=== PATIENT | female | born 1990 | race African-American/Black ===

== ENCOUNTER 2021-01-29 08:55 | Emergency (ER) | payer OTHER ==
--- OUTSIDE RECORDS SUMMARY | 2021-01-29 08:58 | XMS REPORT | Continuity of Care Document ---
:1990 Author Organization [facility] t Address [address] [place] [address] [address]. [address] [place] [address] Care Team Providers Name Role Phone BUZZ Attending Clinician Unavailable CROSS Attending Clinician Unavailable WOMENS Attending Clinician Unavailable WOMENS Attending Clinician Unavailable Payers Payer Name Policy Type Policy Number Effective Date Expiration Date S ource Problems Condition Condition Condition Status Onset Resolution Last Treating Co mments Source Name Details Category Date Date Treatment Clinician Date History of History of Problem Resolve Univers abnormal abnormal d ity of cervical cervical [place] Papanicola Papanicola Ph ysici ou smear ou smear ans History of History of Problem Resolve Univers Nausea and Nausea and d it y of vomiting vomiting [place] in in Physici ans Visit for Visit for Problem Active Uni vers confirmati confirmati it y of on of on of [place] Phys ici test test ans result result with with physical physical exam exam Screen for Screen for Problem Active U nivers STD STD ity of (sexually (sexually [place] transmitte transmitte Ph ysici d disease) d disease) an s Vaginitis Vaginitis Problem Active Uni vers ity of [place] Physici ans Encounter Encounter Problem Active Uni vers for for [place] of supervis[place]vis[place] of [place] of Physici normal normal ans first first in second in second trimester trimester Constipati Constipati Problem Active U nivers [place] Anemia Anemia Problem Active Univers [facility]y of [place] [facility]ici ans Problem Active U nivers exam exam ity of [place] Physici ans UTI in UTI in Problem Active Univers ity of [place] [facility]ici ans Oral Oral Problem Active Univers contracept contracept it y of preethi preethi [place] prescribed prescribed Ph ysici ans Allergies, Adverse Reactions, Alerts Allergy Allergy Status Severity Reaction(s) Onset Inactive Treating Comm ents Source Name Type Date Date Clinician No Known DA Active [facility] Family History Family Member Diagnosis Comments Start Date Stop Date Source Unknown Family Family history of Family History [facility] of Member hypertension [place] Physic ians Unknown Family Family history of Family History University of Member diabetes mellitus [place] P hysicians Unknown Family Family history of Family History University of Member thyroid disease [place] Phy s[facility] Social History Smoking Status Start Date Stop Date Source Never smoked tobacco (finding) [facility] Medications Ordered Filled Start Stop Current Ordering Indication Dosage Frequency Signature Comments Components Source Medication Medication Date Date Medication? Clinician (SIG) Name Name Norgestim-E Norgestim-E Yes ROXY 1 QD TAKE 1 Univers Estrad th Estrad 1-28 CROSS M.D. TABLET ity of Triphasic Triphasic 00:00: DAILY. [place] 0.18/0.215/ 0.18/0.215/ 00 P hysici 0.25 MG-25 0.25 MG-25 ans MCG Oral MCG Oral Tablet Tablet Vital Signs Vital Name Observation Time Observation Value Comments Source Systolic blood 2019-03-17 120 mm[Hg] Location: [facility] 16:42:00 Position: [place] Physician s Sitting Diastolic blood 2019-03-17 74 mm[Hg] Location: [facility] 16:42:00 Position: [place] Physician s Sitting Body height 2019-03-17 66 [in_us] [facility] 16:42:00 [place] Physician s Weight 2019-03-17 195 [lb_av] [facility] 16:42:00 [place] [facility] s Body mass index 2019-03-17 31.47 kg/m2 [place] o f (BMI) [Ratio] 16:42:00 [place] [facility]icia ns Heart Rate 2019-03-17 83 /min [facility] 16:42:00 [place] Phys[place] s BP Systolic 2019-02-24 126 mm[Hg] [facility] 08[facility] Position: [place] Physician s Sitting BP Diastolic 2019-02-24 80 mm[Hg] [facility] 08:36:[facility] Position: [place] Physician s Sitting Height 2019-02-24 66 [in_us] University 08:36:00 [place] Physician s Weight 2019-02-24 191 [lb_av] University of 08:36:00 [place] Physician s Body Mass Index 2019-02-24 30.83 kg/m2 University o f Calculated 08:36:00 [place] Phys[facility] s Heart Rate 2019-02-24 98 /min University 08:36:00 [place] Phys[place] s BP Systolic 2018-12-04 118 mm[Hg] [place] [facility] [facility] 11:31:00 Position: [place] Physician s Sitting BP Diastolic 2018-12-04 74 mm[Hg] [place] [facility] [facility] 11:31:00 Position: [place] Physician s Sitting Height 2018-12-04 66 [in_us] University 11:31:00 [place] [facility] s Weight 2018-12-04 189 [lb_av] [facility] 11:31:00 [place] Physician s Body Mass Index 2018-12-04 30.51 kg/m2 University o f Calculated 11:31:00 [place] [facility] s Heart Rate 2018-12-04 85 /min [facility] 11:31:00 [place] Physician s BP Systolic 2018-07-24 124 mm[Hg] Location: [facility]; [facility] 10:21:00 Position: [place] Physician s Sitting BP Diastolic 2018-07-24 78 mm[Hg] Location: [facility] 10:21:00 Position: [place] Physician s Sitting Height 2018-07-24 66 [in_us] University 10:21:00 [place] [facility] s Weight 2018-07-24 200 [lb_av] University 10:21:00 [place] [facility] s Body Mass Index 2018-07-24 32.28 kg/m2 University o f Calculated 10:21:00 [place] Physician s Temperature 2018-07-24 98.2 [degF] Method: Oral University 10:21:00 [place] [facility] s Heart Rate 2018-07-24 82 /min University 10:21:00 [place] [facility] s BP Systolic 2018-05-22 124 mm[Hg] Location: [facility] 14:48:00 Position: [place] Physician s Sitting BP Diastolic 2018-05-22 72 mm[Hg] Location: [facility] 14:48:00 Position: [place] Physician s Sitting Height 2018-05-22 66 [in_us] University 14:48:00 [place] [facility] s Weight 2018-05-22 207 [lb_av] University 14:48:00 [place] [facility] s Body Mass Index 2018-05-22 33.41 kg/m2 University o f Calculated 14:48:00 [place] [facility] s BP Systolic 2018-04-17 128 mm[Hg] [place] [facility] [facility] 11:43:00 Position: [place] Physician s Sitting BP Diastolic 2018-04-17 78 mm[Hg] Location: [place]; [facility] 11:43:00 Position: [place] Physician s Sitting Height 2018-04-17 66 [in_us] University of 11:43:00 [place] [facility] s Weight 2018-04-17 243 [lb_av] University 11:43:00 [place] [facility] s Body Mass Index 2018-04-17 39.22 kg/m2 University o f Calculated 11:43:00 [place] [facility] s Heart Rate 2018-04-17 108 /min University 11:43:00 [place] [facility] s BP Systolic 2018-04-03 120 mm[Hg] Location: [facility] 14:46:00 Position: [place] Physician s Sitting BP Diastolic 2018-04-03 70 mm[Hg] [facility] 14:46:00 Position: [place] Physician s Sitting Height 2018-04-03 66 [in_us] University 14:46:00 [place] [facility] s Weight 2018-04-03 240 [lb_av] University 14:46:00 [place] [facility] s Body Mass Index 2018-04-03 38.74 kg/m2 University o f Calculated 14:46:00 [place] [facility] s Heart Rate 2018-04-03 96 /min [facility] 14:46:00 [place] [facility] s BP Systolic 2018-03-20 120 mm[Hg] Location: [place]; [facility] 13:49:00 Position: [place] Physician s Sitting BP Diastolic 2018-03-20 66 mm[Hg] Location: [place]; [facility] 13:49:00 Position: [place] Physician s Sitting Height 2018-03-20 66 [in_us] University of 13:49:00 [place] [facility] s Weight 2018-03-20 242 [lb_av] University of 13:49:00 [place] [facility] s Body Mass Index 2018-03-20 39.06 kg/m2 University o f Calculated 13:49:00 [place] [facility] s Temperature 2018-03-20 98.4 [degF] Method: Oral [facility] of 13:49:00 [place] [facility] s Heart Rate 2018-03-20 116 /min University of 13:49:00 [place] [facility] s O2 SAT 2018-03-20 98 % University of 13:49:00 [place] Phys[facility] s BP Systolic 2018-03-06 128 mm[Hg] Location: [place]; [place] [facility] 11:13:00 Position: [place] Physician s Sitting BP Diastolic 2018-03-06 80 mm[Hg] Location: [place]; [facility] 11:13:00 Position: [place] Physician s Sitting Height 2018-03-06 66 [in_us] University of 11:13:00 [place] [facility] s Weight 2018-03-06 241 [lb_av] University of 11:13:00 [place] [facility] s Body Mass Index 2018-03-06 38.9 kg/m2 University o f Calculated 11:13:00 [place] [facility] s Temperature 2018-03-06 98.1 [degF] Method: Oral [facility] of 11:13:00 [place] [facility] s Heart Rate 2018-03-06 99 /min [place] [facility] 11:13:00 [place] [facility]ician s BP Systolic 2018-02-20 118 mm[Hg] Location: [place]; [place] [facility] 13:54:00 Position: [place] Physician s Sitting BP Diastolic 2018-02-20 70 mm[Hg] Location: [place]; [facility] 13:54:00 Position: [place] Physician s Sitting Height 2018-02-20 66 [in_us] University of 13:54:00 [place] [facility] s Weight 2018-02-20 239 [lb_av] University of 13:54:00 [place] [facility]ician s Body Mass Index 2018-02-20 38.58 kg/m2 University o f Calculated 13:54:00 [place] Physician s BP Systolic 2018-01-28 120 mm[Hg] Location: [place]; [place] [facility] 11:29:00 Position: [place] Physician s Sitting BP Diastolic 2018-01-28 66 mm[Hg] Location: [place]; [place] [facility] 11:29:00 Position: [place] Physician s Sitting Height 2018-01-28 66 [in_us] University of 11:29:00 [place] Physician s Weight 2018-01-28 235.25 [lb_av] University of 11:29:00 [place] Physician s Body Mass Index 2018-01-28 37.97 kg/m2 University o f Calculated 11:29:00 [place] [facility] s Temperature 2018-01-28 98.4 [degF] Method: Oral [facility] of 11::00 [place] [facility] s Heart Rate 2018-01-28 77 /min University of ::00 [place] [facility] s O2 SAT 2018-01-28 97 % University of :: [place] Physician s BP Systolic 2018-01-14 120 mm[Hg] Location: [facility]; [place] [facility] :: Position: [place] Physician s Sitting BP Diastolic 2018-01-14 78 mm[Hg] Location: [place]; [facility] ::00 Position: [place] Physician s Sitting Height 2018-01-14 66 [in_us] University of ::00 [place] Physician s Weight 2018-01-14 233 [lb_av] University of :: [place] Physician s Body Mass Index 2018-01-14 37.61 kg/m2 University o f Calculated ::00 [place] Physician s BP Systolic 2017-12-19 108 mm[Hg] [facility] Position: [place] [facility]ician s Sitting BP Diastolic 2017-12-19 62 mm[Hg] [facility] Position: [place] [facility]ician s Sitting Height 2017-12-19 66 [in_us] University ::00 [place] Physician s Weight 2017-12-19 226 [lb_av] University of ::00 [place] Physician s Body Mass Index 2017-12-19 36.48 kg/m2 University o f Calculated ::00 [place] Physician s BP Systolic 2017-11-21 122 mm[Hg] [facility] :: Position: [place] Physician s Sitting BP Diastolic 2017-11-21 80 mm[Hg] [facility] :: Position: [place] Physician s Sitting Height 2017-11-21 66 [in_us] University of ::00 [place] Physician s Weight 2017-11-21 219 [lb_av] University of :: [place] Physician s Body Mass Index 2017-11-21 35.35 kg/m2 University o f Calculated ::00 [place] Physician s BP Systolic 2017-10-24 114 mm[Hg] [facility]: [facility] :25:00 Position: [place] Physician s Sitting BP Diastolic 2017-10-24 70 mm[Hg] [facility]25:00 Position: [place] Physician s Sitting Height 2017-10-24 66 [in_us] University of 15:25:00 [place] Physician s Weight 2017-10-24 214 [lb_av] [facility] 15:25:00 [place] Physician s Body Mass Index 2017-10-24 34.54 kg/m2 [place] [facility] Calculated 15:25:00 [place] [facility] s Temperature 2017-10-24 97.8 [degF] Method: Oral [facility] 15:25:00 [place] [facility] s Procedures Procedure Date / Time Performing Clinician Source Performed [LH] GC/CT by Amp Det 2019-03-18 00:00:00 [facility] ([facility]) Physicians . [facility] - GC/Chlamydia 2019-03-18 00:00:00 [facility] Physicians [QLH] CULTURE, URINE, 2018-12-04 00:00:00 [facility] ROUTINE Physicians . [facility] - PAP 2018-07-24 00:00:00 [facility] Physicians [QLH] RPR 2018-07-24 00:00:00 [facility] Physicians [QH] HIV AB, HIV 1/2, EIA, 2018-07-24 00:00:00 [facility] WITH REFLEXES Physicians [QH] HEPATITIS B SURFACE 2018-07-24 00:00:00 [facility] ANTIGEN W/REFL CONFIRM Physician s [QLH] HEPATITIS C ANTIBODY 2018-07-24 00:00:00 U [facility] Physicians [QH] STREPTOCOCCUS, GROUP 2018-04-03 00:00:00 [facility] B CULTURE (Genital Strep Physici ans Screen) [QLH] RPR 2018-04-03 00:00:00 [facility] Physicians [QLH] CBC (INCLUDES 2018-04-03 00:00[facility] [QH] HIV AB, HIV 1/2, EIA, 2018-04-03 00:00:00 U [facility] WITH REFLEXES Physicians [QH] GLUCOSE, GESTATIONAL 2018-01-14 00:00[facility]00 [id number]130 CUTOFF Physicia ns [QLH] CBC (INCLUDES 2018-01-14 00:00:00 Universi ty [facility] DIFF/PLT) Physicians [H] Alpha Fetoprotein 2017-11-21 00:00:00 [facility] (Only) Maternal Screen Physician s [H] Obstetrics Panel 2017-10-24 00:00:00 [facility] (includes CBCw/Diff,RPR, Physici ans HbsAg,RubIgG,Type and Screen) [QH] HIV AB, HIV 1/2, EIA, 2017-10-24 00:00:00 U [facility] WITH REFLEXES Physicians [QLH] CULTURE, URINE, 2017-10-24 00:00:00 [facility] ROUTINE Physicians [QLH] URINALYSIS, COMPLETE 2017-10-24 00:00:00 U [facility] Physicians [H] Hemoglobin 2017-10-24 00:00:00 [facility] Electrophoresis and Physicians Interpretation [QH] [id number] 2017-10-24 00:00:00 [facility] DEHYDROGENASE, QUANT. Physicians [QLH] BV/ VAGINITIS PANEL 2017-10-24 00:00:00 [facility] DNA PROBE AFFIRM Physicians [LH] GC/CT by Amp Det 2017-10-24 00:00:00 [facility] ([facility]) Physicians History Of Prior Surgery [facility] Physicians Encounters Start End Encounter Admission Attending Care Care Encounter Source Date/Time Date/Time Type Type Clinicians Facility Department ID 2019 2019 Emergency E BUZZ, MHBL MHBL [id number] MHBL 05:31:00 06:13:00 SABHA 2019-03-17 2019-03-17 AppointJODIE Hand[facility] [id number] Univers 16:00:00 16:00:00 t; ROXY LOWE Center Elke M.D. [facility] Yissel Physici ans 2019-02-24 2019-02-24 AppointJODIE Handy [facility] [id number] Univers 08:30:00 08:30:00 t; [facility] Yissel Physici ans 2018-12-04 2018-12-04 JODIE Shaffer [facility] [id number] Univers 11:30:00 11:30:00 t; [facility] Yissel Physici ans 2018-07-24 2018-07-24 Appointmen [facility] [id number] Univers 10:15:00 10:15:00 t; R[place]Y LOWE Center Elke M.D. [facility] Yissel Physici ans 2018-05-22 2018-05-22 Appointmen [facility] [id number] Univers 14:15:00 14:15:00 t; [facility]Y LOWE Center ity of TAMIKA, M.D. [facility] Yissel Physici ans 2018-04-17 2018-04-17 Appointmen [facility] [id number] Univers 11:30:00 11:30:00 t; ROXY LOWE Center ity of TAMIKA, M.D. [facility] Yissel Physici ans 2018-04-03 2018-04-03 Appointmen [facility] [id number] Univers 14:00:00 14:00:00 t; ROXY LOWE Wilmer Elke M.D. [facility] Yissel Physici ans 2018-03-20 2018-03-20 Appointmen [facility] [id number] Univers 13:30:00 13:30:00 t; ROXY LOWE Center ity of TAMIKA, M.D. [facility] Yissel Physici ans 2018-03-06 2018-03-06 Appointmen [facility] [id number] Univers 10:45:00 10:45:00 t; ROXY LOWE Center ity of TAMIKA, M.D. [facility] Yissel Physici ans 2018-02-20 2018-02-20 Appointmen [facility] Women[facility] [id number] Univers 13:45:00 13:45:00 t; ROXY LOWE Center ity of TAMIKA, M.D. [facility] Yissel Physici ans 2018-01-28 2018-01-28 Appointmen [facility] [id number] Univers 10:45:00 10:45:00 t; ROXY LOWE Center ity of TAMIKA, M.D. [facility] Yissel Physici ans 2018-01-14 2018-01-14 AppointJODIE Handy [facility] [id number] Univers 10:45:00 10:45:00 t; ROXY LOWE [facility]mer [facility] 2017-12-20 2017-12-20 Appointgiovanna [facility] [id number] Univers 10:45:00 10:45:00 t; WOMENS, ROOM-1 ity of ROOM-1 [place] Physici ans 2017-12-19 2017-12-19 Appointgiovanna [facility] [id number] Univers 15:15:00 15:15:00 t; [facility]E [facility]ici ans 2017-11-21 2017-11-21 JODIE Shaffer [facility] [id number] Univers 10:45:00 10:45:00 t; ROXY LOWE Wilmer Elke [facility]. [facility] 2017-11-01 2017-11-01 Appointgiovanna [facility] [id number] Univers 14:00:00 14:00:00 t; WOMENNaa, ROOM-1 ity of ROOM-1 [place] Physici ans 2017-11-01 2017-11-01 Appointgiovanna [facility] [id number] Univers 13:00:00 13:00:00 t; WOMENNaa, COUNSELING ity of COUNSELING [place] Physici ans 2017-10-24 2017-10-24 Tony [facility] [id number] Univers 15:00:00 15:00:00 t; ROXY LOWE [facility] Physici ans Results Test Description Test Time Test Comments Results Result Comments Source . [facility] - GC/Chlamydia 2019-03-18 00:00:00 Test Item Value Reference Range Interpretation Comme nts Case (test code = Case) Click ImageLink button for report. N Specimen 1 (test code = Specimen 1) Click ImageLink button for repo rt. N [facility] Physicians[O] Urine Dipstick (In Office)2018-12-04 13:38:00 Test Item Value Reference Range Interpretation Comments Glucose (test code = Glucose) negative N LEUKOCYTES (test code = LEUKOCYTES) small A NITRITE; Abnormal (test code = positive A 87522-2) UROBILINOGEN; Abnormal (test code = 1.0 A 46202-8) PROTEIN; Abnormal (test code = trace A 67690-4) pH (test code = pH) 6.0 A URINE BLOOD; Abnormal (test code = trace A 17274-1) SPECIFIC GRAVITY; Abnormal (test 1.025 A code = 2965-2) KETONES; Normal (test code = negative N 19580-7) BILIRUBIN; Normal (test code = negative N 50542-0) COLOR URINE; Normal (test code = yellow N 5778-6) [facility] Physicians[O] Urine Test (in office)2018-12-04 11:28:00 Test Item Value Reference Range Interpretation Comments Test, Urine; Abnormal positive A (test code = 2106-3) Control Line Present? (test code = Yes N Control Line Present?) Test Lot# (test code = Test Lot#) [id number] N [facility]] CULTURE, URINE, [id number] 00:00:01 Test Item Value Reference Range Interpretation Comments FINAL REPORT (test code <10,000 CFU/mL Skin = FINAL REPORT) Che [facility]] [id number] 11:14:01 Test Item Value Reference Range Interpretation Comments RPR (test code = 27450-1) Non-Reactive Non-Reactive [facility][] HEPATITIS B SURFACE ANTIGEN W/REFL CONFIRM 2018-07-24 11:14:01 Test Item Value Reference Range Interpretation Comments Hepatitis B Surface Antigen (test Negative Negative code = 5195-3) [facility]] HEPATITIS C [id number] 11:14:01 Test Item Value Reference Range Interpretation Comments Hepatitis C Antibody (test code = Negative 14841-3) [facility] Physicians[] HIV AB, HIV 1/2, EIA, WITH [id number] 11:14:01 Test Item Value Reference Range Interpretation Comments HIV Ag/Ab 4th Gen Negative Negative HIV test r esults should be (test code = considered posi tive only 40678-8) when both the s creening andthe confirma tory tests are positive. A negative confirmatory te st in patientswith a positive screening test does not exclude HIV inf ection. If clincallywarran dayan, an HIV RNA quantitativ e test should be order ed. [facility] Physicians. [facility] - [id number] 00:00:00 Test Item Value Reference Range Interpretation Comments PAP REPORT (test code = 88889-2) See Comment [facility] Physicians[] HIV AB, HIV 1/2, EIA, WITH [id number] 15:44:01 Test Item Value Reference Range Interpretation Comments HIV Ag/Ab 4th Gen Negative Negative HIV test r esults should be (test code = considered posi tive only 74531-8) when both the s creening andthe confirma tory tests are positive. A negative confirmatory te st in patientswith a positive screening test does not exclude HIV inf ection. If clincallywarran dayan, an HIV RNA quantitativ e test should be order ed. [facility] Physicians[] STREPTOCOCCUS, GROUP B CULTURE (Genital Strep Screen)2018-04-03 15:44:01 Test Item Value Reference Range Interpretation Comments FINAL REPORT (test No Beta-Hemolytic code = FINAL REPORT) Streptococci Isolated [facility] Physicians[[facility]] CBC (INCLUDES DIFF/PLT)2018-04-03 15:44:01 Test Item Value Reference Range Interpretation Comments WBC (test code = 6690-2) 9.4 {K/CMM} 3.7-10.4 RBC; Below Low Threshold (test 3.63 {M/CMM} 4.20-5.40 code = 789-8) Hgb; Below Low Threshold (test 10.2 g/dl 12.0-16.0 code = 718-7) Hct; Below Low Threshold (test 32.0 % 36.0-48.0 code = 75374-2) MCV (test code = 787-2) 88.3 fL 80.0-98.0 MCH (test code = 785-6) 28.1 pg 27.0-31.0 MCHC; Below Low Threshold (test 31.8 g/dl 32.0-36.0 code = 786-4) RDW; Above High Threshold (test 15.7 % 11.5-14.5 code = 788-0) Platelet (test code = 21940-3) 319 {K/CMM} 133-450 Mean Platelet Volume (test code 9.0 fL 7.4-10.4 = 57001-9) [facility]] [id number] 15:44:01 Test Item Value Reference Range Interpretation Comments Segmented Neutrophils (test code 72.6 % 45.0-75.0 = 38358-9) Monocytes (test code = 79487-6) 7.3 % 2.0-12.0 Lymphocytes; Below Low Threshold 18.6 % 20.0-40.0 (test code = 64256-3) Eosinophils (test code = 00052-3) 1.2 % 0.0-4.0 Basophils (test code = 706-2) 0.3 % 0.0-1.0 Segs-Bands # (test code = 6.8 {K/CMM} 1.5-8.1 34872-0) Lymphocytes # (test code = 1.7 {K/CMM} 1.0-5.5 95016-2) Monocytes # (test code = 09222-1) 0.7 {K/CMM} 0.0-0.8 Eosinophils # (test code = 0.1 {K/CMM} 0.0-0.5 36036-0) [facility]] [id number] 15:44:01 Test Item Value Reference Range Interpretation Comments RPR (test code = 29077-3) Non-Reactive Non-Reactive [facility]] CBC (INCLUDES DIFF/PLT)2018-01-16 14:52:01 Test Item Value Reference Range Interpretation Comments WBC; Above High Threshold (test 12.1 {K/CMM} 3.7-10.4 code = 6690-2) RBC; Below Low Threshold (test 3.34 {M/CMM} 4.20-5.40 code = 789-8) Hgb; Below Low Threshold (test 9.5 g/dl 12.0-16.0 code = 718-7) Hct; Below Low Threshold (test 29.7 % 36.0-48.0 code = 99023-2) MCV (test code = 787-2) 89.1 fL 80.0-98.0 MCH (test code = 785-6) 28.5 pg 27.0-31.0 MCHC (test code = 786-4) 32.0 g/dl 32.0-36.0 RDW (test code = 788-0) 13.8 % 11.5-14.5 Platelet (test code = 08467-5) 391 {K/CMM} 133-450 Mean Platelet Volume (test code 9.0 fL 7.4-10.4 = 72339-8) [facility] Physicians[[facility]] [id number] 14:52:01 Test Item Value Reference Range Interpretation Comments Segmented Neutrophils (test code 69.8 % 45.0-75.0 = 59275-5) Monocytes (test code = 20315-5) 6.7 % 2.0-12.0 Lymphocytes (test code = 32570-5) 21.5 % 20.0-40.0 Eosinophils (test code = 75389-8) 1.6 % 0.0-4.0 Basophils (test code = 706-2) 0.4 % 0.0-1.0 Segs-Bands #; Above High 8.4 {K/CMM} 1.5-8.1 Threshold (test code = 95923-9) Lymphocytes # (test code = 2.6 {K/CMM} 1.0-5.5 66480-8) Monocytes # (test code = 28688-0) 0.8 {K/CMM} 0.0-0.8 Eosinophils # (test code = 0.2 {K/CMM} 0.0-0.5 26451-4) Basophils # (test code = 21312-6) 0.1 {K/CMM} 0.0-0.2 [facility][] GLUCOSE, GESTATIONAL SCREEN (50G)-130 CUTOFF 2018-01-16 14:52:01 Test Item Value Reference Range Interpretation Comments Glucose Challenge (test code = 94.0 mg/dl <=140.0 1504-0) [facility][H] Alpha Fetoprotein (Only) Maternal Screen 2017-11-21 12:33:01 Test Item Value Reference Interpretation Comments Range Results Report (Maternal Screen) (test code = Results (Maternal Screen)) Test Results *Screen (Maternal Negative* Screen) (test code = Test Results (Maternal Screen)) Gest Age on 16.9 {WEEKS} Collection Date (test code = Gest Age on Collection Date) Gest Age Base On Ultrasound 16.9 on (test code = 11/21/2017Recal culations Gest Age Base are not recomm ended when On) gestational myron ingby LMP and ultrasound are within 10 days. Maternal Age at 25.3 ARIK (test code = Maternal Age at ARIK) Maternal Race Black (test code = Maternal Race) Maternal Weight 219 {lb} (test code = Maternal Weight) Insulin-Dependen No t Diabetic (test code = Insulin-Dependen t Diabetic) Multiple Gest No (test code = Multiple Gest) Alpha 24.6 ng/ml Fetoprotein Maternal (test code = Alpha Fetoprotein Maternal) Multiple of 0.76 Median AFP (test code = 43119-1) Risk for NTD 92920 (OBS) (test code = Risk for NTD (OBS)) Maternal Screen Comment Interpretati on: Screen Interp (test NegativeThis re sult is code = Maternal screen negat preethi for Screen Interp) OSB. The AFP MoMcalculated is based on the gestational age provided. M S-AFPcan identify up to 80% of open neural tu be defects.Closed neural tube defects and charity e open defects may not bedetected by this test. T his test does not screen for fetalDown Syndr ome or Trisomy 18. If screening for Down Syndro meor Trisomy 18 is desired, contact [facility] to discuss availab le options. The AmericanCol lege of Obstetricians a nd Gynecologists recommendsamnio centesis be offered to wome n age 35 and older. Comment Comment Joanie Garcia, (Maternal Scrn) Ph.D., [facility] Principal (test code = Genetics Techni eran Comment DirectorReferen harman: (Maternal Scrn)) Available U marbin Request.Multipl es Of Median Cutoffs For AFP ElevationsSingl eton 2.5 Black 2.8IDD 2.0 Twins 4.5 Abbr eviation DefinitionsIDD - Insulin Dep DiabetesOSB R - Open Spina Bifida Ri skFor further inquiri es contact [facility] at [phone]. Performed At: [facility] [id number] [place], [place] [id number] Hope MD Ph :[phone] Insulin N Dependent? (test code = Insulin Dependent?) Gest Ager Weeks? 16 (test code = Gest Ager Weeks?) Gest Age Days 6 (test code = Gest Age Days) Gest Age Date of Calculation (YYYYMMDD) (test code = Gest Age Date of Calculation (YYYYMMDD)) Gest Age Method Ultrasound of Calculation (test code = Gest Age Method of Calculation) Date of LMP (test code = Date of LMP) Est Due Date (test code = Est Due Date) Number of 1 Fetuses (test code = Number of Fetuses) Other N Indications? (test code = Other Indications?) Donor Egg (test N code = Donor Egg) Donor Age at Egg 0 Retrieval (test code = Donor Age at Egg Retrieval) [facility]] BV/ VAGINITIS PANEL DNA PROBE AFFIRM 2017-10-24 20:16:01 Test Item Value Reference Range Interpretation Comments Trichomonas vaginalis DNA (test code Negative Negative = 36117-3) Gardnerella vaginalis DNA; Abnormal Positive Negative A (test code = 6410-5) Hailey sp. DNA (test code = Negative Negative 36966-7) [facility][] GC/CT by Amp Det (APTIMA)2017-10-24 20:16:01 Test Item Value Reference Range Interpretation Comments Source APTIMA Vaginal (test code = Source APTIMA) N gonorrhea by Amp Negative Negative The APTIM A assay is a Det (APTIMA) (test target am plification code = 48076-5) nucleic acid probe test utilizingtarget capture for the qualitative detection and differentia tion of ribosomalRNA fr om Neisseria gonorrhoeae to aid in the diagnosis of di sease fromsymptomatic and asymptomatic in dividuals using the [facility] System.This ass ay utilizes FDA cleared IVD reagents. Performance pk racteristics havemichelleen verifi ed by the Molecular Diagn ostic Laboratory with in [facility].The [facility] johnsonrachana is authorized unde r the Clinical LaboratoryImpro vement Amendments of 1 988 (CLIA-88) to pe rform high complexity test ing. C trachomatis by Negative Negative The APTIMA assay is a Amp Det (APTIMA) target ampl ification (test code = nucleic acid pr obe test 18588-7) utilizingtarget capture for the qualitative detection and differentia tion of ribosomalRNA fr om Chlamydia trachomatis to aid in the diagnosis of di sease fromsymptomatic and asymptomatic in dividuals using the [facility] ER System.This ass ay utilizes FDA cleared IVD reagents. Performance pk racteristics havebeen verifi ed by the [facility] o[facility] Laboratory with in [facility].The [facility] ratory is authorized unde r the Clinical LaboratoryImpro vement Amendments of 1 988 (CLIA-88) to pe rform high complexity test ing. C trachomatis by Negative Negative The APTIMA assay is a Amp Det (APTIMA) target ampl ification (test code = nucleic acid pr obe test 45259-6) utilizingtarget capture for the qualitative detection and differentia tion of ribosomalRNA fr om Chlamydia trachomatis to aid in the diagnosis of di sease fromsymptomatic and asymptomatic in dividuals using the [facility] ER System.This ass ay utilizes FDA cleared IVD reagents. Performance pk racteristics havebeen verifi ed by the [facility] with in [facility].The [facility] r[facility] is authorized unde r the Clinical LaboratoryImpro vement Amendments of 1 988 (CLIA-88) to pe rform high complexity test ing. [facility][H] Obstetrics Panel (includes CBCw/Diff,RPR, HbsAg,RubIgG,Type and Screen)2017-10-24 16:30:01 Test Item Value Reference Range Interpretation Comments ABORH (test code = AB POS 882-1) AB Screen (test code = Negative 890-4) WBC; Above High 11.1 {K/CMM} 3.7-10.4 Threshold (test code = 6690-2) RBC; Below Low 3.90 {M/CMM} 4.20-5.40 Threshold (test code = 789-8) Hgb; Below Low 11.3 g/dl 12.0-16.0 Threshold (test code = 717-9) Hct; Below Low 34.4 % 36.0-48.0 Threshold (test code = 47878-7) MCV (test code = 88.1 fL 80.0-98.0 787-2) MCH (test code = 29.1 pg 27.0-31.0 41574-2) MCHC (test code = 33.0 g/dl 32.0-36.0 786-4) RDW (test code = 14.2 % 11.5-14.5 788-0) Platelet (test code = 427 {K/CMM} 133-450 777-3) MPV (test code = 9.2 fL 7.4-10.4 42966-1) Rubella IgG (test code 54.9 {IU/ml} >=10.0 Refer ence Range: = 81432-4) Immune >= 10 IU /mL Hep Bs Ag (test code = Negative Negative 5195-3) Segs (test code = 73.3 % 45.0-75.0 33293-5) Monocytes # (test code 0.7 {K/CMM} 0.0-0.8 = 50477-0) Lymphocytes (test code 18.5 % 20.0-40.0 = Lymphocytes) Eosinophils (test code 1.5 % 0.0-4.0 = Eosinophils) Basophils # (test code 0.0 {K/CMM} 0.0-0.2 = 60623-0) Segs-Bands #; Above 8.2 {K/CMM} 1.5-8.1 High Threshold (test code = 40121-1) Lymphocytes # (test 2.1 {K/CMM} 1.0-5.5 code = 99717-3) Eosinophils # (test 0.2 {K/CMM} 0.0-0.5 code = 58746-6) RPR (test code = Non-Reactive Non-Reactive 53333-0) [facility]] URINALYSIS, [id number] 16:30:01 Test Item Value Reference Range Interpretation Comments UA Turbidity; Abnormal (test code Marked Clear A = 03188-8) UA Spec Grav (test code = 5810-7) 1.024 <=1.030 UA pH (test code = 5803-2) 6.0 5.0-8.0 UA Protein; Abnormal (test code = 30 mg/dl Negative A 27126-4) UA Glucose (test code = 55916-3) Negative Negative UA Ketones; Abnormal (test code = Trace Negative A 01596-3) UA Bili (test code = 5770-3) Negative Negative UA Blood; Abnormal (test code = Moderate Negative A 5794-3) UROBILINOGEN; Above High Threshold 4.0 mg/dl 0.1-1.0 (test code = 77566-4) UA Nitrite (test code = 5802-4) Negative Negative UA Leuk Est; Abnormal (test code = Moderate Negative A 5799-2) UA RBC; Above High Threshold (test 37 {/HPF} 0-2 code = 85628-6) UA WBC; Above High Threshold (test 60 {/HPF} 0-5 code = 25673-0) UA Bacteria; Abnormal (test code = Moderate None Seen A 16157-6) UA Mucus; Abnormal (test code = Many None Seen A 8247-9) UA Sq Epi (test code = 35718-3) Occasional Few UA Color (test code = 5778-6) Mariela [facility][] HIV AB, HIV 1/2, EIA, WITH [id number] 16:30:01 Test Item Value Reference Range Interpretation Comments HIV Ag/Ab 4th Gen Negative Negative HIV test r esults should be (test code = considered posi tive only 98374-9) when both the s creening andthe confirma tory tests are positive. A negative confirmatory te st in patientswith a positive screening test does not exclude HIV inf ection. If clincallywarran dayan, an HIV RNA quantitativ e test should be order ed. [facility]] CULTURE, URINE, [id number] 16:30:01 Test Item Value Reference Range Interpretation Comments ORGANISM (test code = Citrobacter koseri 699-9) FINAL REPORT (test >100,000 CFU/mL code = FINAL REPORT) Citrobacter koseri 50,000 - 100,000 CFU/mL Skin Che [facility][H] [id number] 16:30:01 Test Item Value Reference Range Interpretation Comments ORGANISM (test code = Citrobacter koseri 699-9) Amikacin (test code = <=16 S Amikacin) Ampicillin (test code >16 R = Ampicillin) Ampicillin/Sulbactam <=8/4 S (test code = Ampicillin/Sulbactam) Cefazolin (test code <=8 S = Cefazolin) Cefepime (test code = <=4 S Cefepime) Ceftriaxone (test <=8 S code = Ceftriaxone) Ciprofloxacin (test <=1 S code = Ciprofloxacin) Gentamicin (test code <=4 S = Gentamicin) Levofloxacin (test <=2 S code = Levofloxacin) Meropenem (test code <=1 S = Meropenem) Nitrofurantoin (test <=32 S code = Nitrofurantoin) Piperacillin/Tazobact <=16 S am (test code = Piperacillin/Tazobact am) Tetracycline (test <=4 S code = Tetracycline) Tobramycin (test code <=4 S = Tobramycin) Trimethoprim/Sulfamet <=2/38 S S= Perla ceptible, hoxazole (test code = R= Res istant, I= Trimethoprim/Sulfamet Interm ediate, hoxazole) N/A= Not Applicable [facility][H] Hemoglobin Electrophoresis and Interpretation 2017-10-24 16:30:01 Test Item Value Reference Interpretation Comments Range Hgb A % (test code 97.3 % 95.8-97.8 = 4546-8) Hgb A2 % (test code 2.7 % 2.2-3.2 = 4552-6) Hgb F % (test code 0.0 % 0.0-1.0 = 52626-0) Hgb S % (test code 0.0 % 0.0-0.0 = 94456-4) Hgb C % (test code 0.0 % 0.0-0.0 = 81758-3) Hemoglobin SEE NOTES No abnormal hem oglobins are Electrophoresis detected. Th is is a normal Interpretation hemoglobinele ctrophoresis (test code = pattern.The romina ctronic 70385-6) medical record has been reviewed forrel evant medical information.Jorge estevez personally reviewed the te st results andconcur with the resident's interpretation. CPT 12085-WBYqofrtv glenroy Signature Edita Villarreal MD 10/28/17 10:54 AM [facility][O] Urine Test (in office)2017-10-24 15:41:00 Test Item Value Reference Range Interpretation Comments Test, Urine; Abnormal positive A (test code = 2106-3) [facility]
--- NOTE | 2021-01-29 09:57 | EDPHYS ---
Physician Documentation [facility] Name: Ngoc Thomson Age: 30 yrs Sex: Female : 1990 Arrival Date: 01/29/2021 Time: 08:56 Bed 8 Private MD: ED Physician Regla Ruiz HPI: 01/29 09:55 This 30 yrs old Black Female presents to ER via Ambulatory with complaints of Shortness ma2 Of Breath - covid+, Back Pain. 09:55 The patient has shortness of breath during heavy activity. Onset: The symptoms/episode ma2 began/occurred gradually, 1 day(s) ago. Associated signs and symptoms: Pertinent negatives: dizziness, loss of consciousness, numbness in extremities, vomiting. Severity of symptoms: At their worst the symptoms were very mild in the emergency department the symptoms are unchanged. The patient has not experienced similar symptoms in the past. She requests empiric treatment for STDs. Sexually active with vaginal discharge. Historical: - Allergies: 09:10 No Known Allergies; bp - Home Meds: 09:10 CONTROL [Active]; bp - PMHx: 09:10 None; bp - PSHx: 09:10 None; bp - Immunization history:: Adult Immunizations up to date, Client reports receiving the 2nd dose of the Covid vaccine, Date received: November 2020. - Social history:: Smoking status: Patient denies any tobacco usage or history of. Patient/guardian denies using alcohol, street drugs, The patient lives with family. - Family history:: not pertinent. ROS: 09:55 Constitutional: Negative for fever, chills, and weight loss. ma2 09:55 All other systems are negative. Exam: 09:55 Constitutional: This is a well developed, well nourished patient who is awake, alert, ma2 and in no acute distress. Head/Face: Normocephalic, atraumatic. Eyes: Pupils equal round and reactive to light, extra-ocular motions intact. Lids and lashes normal. Conjunctiva and sclera are non-icteric and not injected. Cornea within normal limits. Periorbital areas with no swelling, redness, or edema. ENT: Nares patent. No nasal discharge, no septal abnormalities noted. Tympanic membranes are normal and external auditory canals are clear. Oropharynx with no redness, swelling, or masses, exudates, or evidence of obstruction, uvula midline. Mucous membranes moist. Neck: Trachea midline, no thyromegaly or masses palpated, and no cervical lymphadenopathy. Supple, full range of motion without nuchal rigidity, or vertebral point tenderness. No Meningismus. Chest/axilla: Normal chest wall appearance and motion. Nontender with no deformity. No lesions are appreciated. Cardiovascular: Regular rate and rhythm with a normal S1 and S2. No gallops, murmurs, or rubs. Normal PMI, no JVD. No pulse deficits. Respiratory: Lungs have equal breath sounds bilaterally, clear to auscultation and percussion. No rales, rhonchi or wheezes noted. No increased work of breathing, no retractions or nasal flaring. Abdomen/GI: Soft, non-tender, with normal bowel sounds. No distension or tympany. No guarding or rebound. No evidence of tenderness throughout. Skin: Warm, dry with normal turgor. Normal color with no rashes, no lesions, and no evidence of cellulitis. MS/ Extremity: Pulses equal, no cyanosis. Neurovascular intact. Full, normal range of motion. Neuro: Awake and alert, GCS 15, oriented to person, place, time, and situation. Cranial nerves II-XII grossly intact. Motor strength 5/5 in all extremities. Sensory grossly intact. Cerebellar exam normal. Normal gait. Vital Signs: 09:08 BP 125 / 94; Pulse 76; Resp 17; Temp 99; Pulse Ox 100% ; Weight 96.62 kg; Height 5 ft. bp 7 in. (170.18 cm); 10:15 BP 109 / 83; Pulse 80; Resp 16; Pulse Ox 100% ; bp 09:08 Body Mass Index 33.36 (96.62 kg, 170.18 cm) bp MDM: 09:00 Patient medically screened. ma2 09:55 Differential diagnosis: Anxiety Reaction Psychogenic reactive airway disease. Data ma2 reviewed: vital signs, nurses notes, EMS record. Counseling: I had a detailed discussion with the patient and/or guardian regarding: the historical points, exam findings, and any diagnostic results supporting the discharge/admit diagnosis, the presence of at least one elevated blood pressure reading (>120/80) during this emergency department visit, the need for outpatient follow up, Tested positive for Covid.. 01/29 10:04 Order name: Urine Dipstick-Ancillary EDMS 01/29 10:05 Order name: Urine --Ancillary (enter results) eb 01/29 09:21 Order name: Urine Dipstick-Ancillary (obtain specimen); Complete Time: 10:14 ma2 01/29 10:05 Order name: Urine --Ancillary EDMS Administered Medications: 09:45 Drug: Zithromax (azithromycin) 1000 mg Route: PO; bp 10:14 Follow up: Response: No adverse reaction bp 09:45 Drug: Rocephin (cefTRIAXone) 250 mg Route: IM; Site: left gluteus; bp 10:14 Follow up: Response: No adverse reaction bp Disposition Summary: 01/29/21 09:57 Discharge Ordered Location: Home ma2 Condition: Stable ma2 Diagnosis - Other viral infections of unspecified site - covid - 19 ma2 Followup: ma2 - With: Private Physician - When: Tomorrow - Reason: If symptoms return, Continuance of care Discharge Instructions: - Discharge Summary Sheet ma2 - 10 Things You Can Do to Manage Your COVID-19 Symptoms at Home - [facility] ma2 Forms: - Medication Reconciliation Form ma2 - Thank You Letter ma2 - Antibiotic Education ma2 - Prescription Opioid Use ma2 - Work release form eb Prescriptions: - albuterol sulfate 90 mcg/actuation Inhalation aerosol powdr breath activated - inhale 2 puff by INHALATION route every 12 hours; 2 puff; Refills: 0, Product ma2 Selection Permitted - Reglan 10 mg Oral Tablet - take 1 tablet by ORAL route every 6 hours . take 30 minutes before meals and at ma2 bedtime; 100 tablet; Refills: 0, Product Selection Permitted - Diclofenac Sodium 75 mg Oral Tablet Sustained Release - take 1 tablet by ORAL route 2 times per day; 30 tablet; Refills: 0, Product ma2 Selection Permitted - Zithromax Z-Juventino 250 mg Oral Tablet - take 1 tablet by ORAL route as directed for 5 days Day 1 - take two (2) tablets ma2 one time. Day 2, 3, 4 , 5 take one (1) tablet once daily.; 6 tablet; Refills: 0, Product Selection Permitted - Medrol (Juventino) 4 mg Oral Tablets, Dose Pack - take 1 tablet by ORAL route as directed - follow package instructions; 1 ma2 packet; Refills: 0, Product Selection Permitted Signatures: Dispatcher [employer] Abel Veliz, LEO RN Regla Ramirez MD MD ma2
--- NOTE | 2021-01-29 09:57 | ER ---
Nurse's Notes [facility] Name: Ngoc Thomson Age: 30 yrs Sex: Female : 1990 Arrival Date: 01/29/2021 Time: 08:56 Bed 8 Private MD: Diagnosis: Other viral infections of unspecified site-covid - 19 Presentation: 01/29 09:08 Chief complaint: Patient states: NEW COVID PT, SOB, ANXIETY AND BACK PAIN. Coronavirus bp screen: cough unrelated to allergies, shortness of breath, Client presents with at least one sign or symptom that may indicate coronavirus-19. Standard/surgical mask placed on the client. Ebola Screen: No symptoms or risks identified at this time. Initial Sepsis Screen: Does the patient meet any 2 criteria? No. Patient's initial sepsis screen is negative. Does the patient have a suspected source of infection? No. Patient's initial sepsis screen is negative. Risk Assessment: Do you want to hurt yourself or someone else? Patient reports no desire to harm self or others. Onset of symptoms was January 27, 2021. 09:08 Method Of Arrival: Ambulatory bp 09:08 Acuity: ENRIQUE 3 bp Triage Assessment: 09:08 General: Appears distressed, uncomfortable, obese, Behavior is cooperative, appropriate bp for age, anxious. Pain: Complains of pain in back. EENT: No deficits noted. Neuro: Level of Consciousness is awake, alert, obeys commands, Oriented to person, place, time, situation, Appropriate for age. Cardiovascular: Rhythm is sinus rhythm. Respiratory: Reports shortness of breath Breath sounds are clear bilaterally. Onset: The symptoms/episode began/occurred yesterday, the patient has mild shortness of breath. GI: No signs and/or symptoms were reported involving the gastrointestinal system. : No signs and/or symptoms were reported regarding the genitourinary system. Derm: No deficits noted. Musculoskeletal: No deficits noted. Historical: - Allergies: 09:10 No Known Allergies; bp - Home Meds: 09:10 CONTROL [Active]; bp - PMHx: 09:10 None; bp - PSHx: 09:10 None; bp - Immunization history:: Adult Immunizations up to date, Client reports receiving the 2nd dose of the Covid vaccine, Date received: November 2020. - Social history:: Smoking status: Patient denies any tobacco usage or history of. Patient/guardian denies using alcohol, street drugs, The patient lives with family. - Family history:: not pertinent. Screenin:10 Abuse screen: Denies threats or abuse. Denies injuries from another. Nutritional bp screening: No deficits noted. Tuberculosis screening: No symptoms or risk factors identified. Fall Risk None identified. Assessment: 09:10 General: SEE TRIAGE NOTE. Cardiovascular: Rhythm is sinus rhythm. bp 10:15 Reassessment: PT ON SHOT TIME. bp 10:45 Reassessment: PT D/C HOME AMBULATORY, DX WITH COVID. bp Vital Signs: 09:08 BP 125 / 94; Pulse 76; Resp 17; Temp 99; Pulse Ox 100% ; Weight 96.62 kg; Height 5 ft. bp 7 in. (170.18 cm); 10:15 BP 109 / 83; Pulse 80; Resp 16; Pulse Ox 100% ; bp 09:08 Body Mass Index 33.36 (96.62 kg, 170.18 cm) bp ED Course: 08:56 Patient arrived in ED. as 08:59 Regla Ruiz MD is Attending Physician. ma2 09:08 Abel Mai, LEO is Primary Nurse. bp 09:10 Triage completed. bp 09:10 Patient has correct armband on for positive identification. Bed in low position. Call bp light in reach. Side rails up X2. 09:19 Arm band placed on. bp 10:14 Urine --Ancillary (enter results) Sent. bp 10:16 No provider procedures requiring assistance completed. Patient did not have IV access bp during this emergency room visit. Administered Medications: 09:45 Drug: Zithromax (azithromycin) 1000 mg Route: PO; bp 10:14 Follow up: Response: No adverse reaction bp 09:45 Drug: Rocephin (cefTRIAXone) 250 mg Route: IM; Site: left gluteus; bp 10:14 Follow up: Response: No adverse reaction bp Outcome: 09:57 Discharge ordered by . ma2 10:46 Discharged to home ambulatory. bp 10:46 Condition: stable 10:46 Discharge instructions given to patient, Instructed on discharge instructions, follow up and referral plans. medication usage, Demonstrated understanding of instructions, follow-up care, medications, Prescriptions given X 4. 10:47 Patient left the ED. bp Signatures: Marilynn Saleh Brian, RN RN bp Regla Ruiz MD MD ma2
[2021-01-29 10:04] LABS: Urine Blood Trace-lysed (Negative); Urine Glucose Negative (Negative); Urine Protein Negative (Negative)
[2021-01-29] MEDS ORDERED: AZITHROMYCIN 250 MG TAB ONE (10:08)
[2021-01-29] MEDS ORDERED: CEFTRIAXONE 500 MG/VIAL ONE (10:09)
[2021-01-29 10:52] VITALS: TEMP 99; O2SAT 100
[2021-01-29 10:53] VITALS: BP 109/83
== END 2021-01-29 10:47 | disposition home or self-care (01) ==
LOC: ER 08:55
DX: U07.1 COVID-19 (principal)
CPT/HCPCS: 81025; 81003; 96372; 99284; J0696

== ENCOUNTER 2021-12-13 11:00 | Emergency (ER) | payer OTHER ==
--- OUTSIDE RECORDS SUMMARY | 2021-12-13 11:07 | XMS REPORT | Continuity of Care Document ---
:1990 Author Organization [facility] t Address [address] [place] [address] Care Team Providers Name Role Phone BUZZVAHID Attending Clinician Unavailable ROXY LOWE M.D. Attending Clinician Unavailable WOMENS, ROOM-1 Attending Clinician Unavailable WOMENS, COUNSELING Attending Clinician Unavailable Payers Payer Name Policy Type Policy Number Effective Date Expiration Date S ource Problems Condition Condition Condition Status Onset Resolution Last Treating Co mments Source Name Details Category Date Date Treatment Clinician Date History of History of Problem Resolve [place] abnormal abnormal d Physic i cervical cervical ans Papanicola Papanicola ou smear ou smear History of History of Problem Resolve UT Nausea and Nausea and d Ph ysici vomiting vomiting ans in in Visit for Visit for Problem Active UT confirmati confirmati Ph ysici on of on of ans test test result result with with physical physical exam exam Screen for Screen for Problem Active U T STD STD Physici (sexually (sexually ans transmitte transmitte d disease) d disease) Vaginitis Vaginitis Problem Active [facility] ans Encounter Encounter Problem Active UT for for Physici supervisio supervisio an s n of n of normal normal first first in second in second trimester trimester Constipati Constipati Problem Active U T on in on in Physici ans Anemia Anemia Problem Active [facility] Phys[facility] ans Problem Active U T exam exam Physici ans UTI in UTI in Problem Active UT Phys ici ans Oral Oral Problem Active UT contracept contracept Ph ysici preethi preethi ans prescribed prescribed Allergies, Adverse Reactions, Alerts Allergy Allergy Status Severity Reaction(s) Onset Inactive Treating Comm ents Source Name Type Date Date Clinician No Known DA Active [facility] 08[facility] Family History Family Member Diagnosis Comments Start Date Stop Date Source Unknown Family Family history of Family History [facility] Member hypertension Unknown Family Family history of Family History [facility] Member diabetes mellitus Unknown Family Family history of Family History [facility] Member thyroid disease Social History Smoking Status Start Date Stop Date Source Never smoked tobacco (finding) [facility] Medications Ordered Filled Start Stop Current Ordering Indication Dosage Frequency Signature Comments Components Source Medication Medication Date Date Medication? Clinician (SIG) Name Name Norgestim-E Norgestim-E Yes ROXY 1 QD TAKE 1 Estrad Estrad 1-28 CROSS M.D. TABLET [facility] Triphasic Triphasic 00:00: DAILY. a ns 0.18/0.215/ 0.18/0.215/ 00 0.25 MG-25 0.25 MG-25 MCG Oral MCG Oral Tablet Tablet Vital Signs Vital Name Observation Time Observation Value Comments Source Systolic blood 2019-03-17 16:42:00 120 mm[Hg] Location: RUE; [facility] pressure Position: Sitting Diastolic blood 2019-03-17 16:42:00 74 mm[Hg] Location: RUE; [facility] pressure Position: Sitting Body height 2019-03-17 16:42:00 66 [in_us] [facility] Weight 2019-03-17 16:42:00 195 [lb_av] [facility] Body mass index 2019-03-17 16:42:00 31.47 kg/m2 [facility] (BMI) [Ratio] Heart Rate 2019-03-17 16:42:00 83 /min [facility] BP Systolic 2019-02-24 08:36:00 126 mm[Hg] Location: E; [facility] Position: Sitting BP Diastolic 2019-02-24 08:36:00 80 mm[Hg] Location: LUE; [facility] Position: Sitting Height 2019-02-24 08:36:00 66 [in_us] [facility] Weight 2019-02-24 08:36:00 191 [lb_av] [facility] Body Mass Index 2019-02-24 08:36:00 30.83 kg/m2 [facility] Calculated Heart Rate 2019-02-24 08:36:00 98 /min [facility] BP Systolic 2018-12-04 11:31:00 118 mm[Hg] Location: LUE; [facility] Position: Sitting BP Diastolic 2018-12-04 11:31:00 74 mm[Hg] Location: LUE; [facility] Position: Sitting Height 2018-12-04 11:31:00 66 [in_us] [facility] Weight 2018-12-04 11:31:00 189 [lb_av] [facility] Body Mass Index 2018-12-04 11:31:00 30.51 kg/m2 [facility] Calculated Heart Rate 2018-12-04 11:31:00 85 /min [facility] BP Systolic 2018-07-24 10:21:00 124 mm[Hg] Location: RUE; [facility] Position: Sitting BP Diastolic 2018-07-24 10:21:00 78 mm[Hg] Location: RUE; [facility] Position: Sitting Height 2018-07-24 10:21:00 66 [in_us] [facility] Weight 2018-07-24 10:21:00 200 [lb_av] [facility] Body Mass Index 2018-07-24 10:21:00 32.28 kg/m2 [facility] Calculated Temperature 2018-07-24 10:21:00 98.2 [degF] Method: Oral [facility] Heart Rate 2018-07-24 10:21:00 82 /min [facility] BP Systolic 2018-05-22 14:48:00 124 mm[Hg] Location: RUE; [facility] Position: Sitting BP Diastolic 2018-05-22 14:48:00 72 mm[Hg] Location: RUE; [facility] Position: Sitting Height 2018-05-22 14:48:00 66 [in_us] [facility] Weight 2018-05-22 14:48:00 207 [lb_av] [facility] Body Mass Index 2018-05-22 14:48:00 33.41 kg/m2 [facility] Calculated BP Systolic 2018-04-17 11:43:00 128 mm[Hg] Location: LUE; [facility] Position: Sitting BP Diastolic 2018-04-17 11:43:00 78 mm[Hg] Location: LUE; [facility] Position: Sitting Height 2018-04-17 11:43:00 66 [in_us] [facility] Weight 2018-04-17 11:43:00 243 [lb_av] [facility] Body Mass Index 2018-04-17 11:43:00 39.22 kg/m2 [facility] Calculated Heart Rate 2018-04-17 11:43:00 108 /min [facility] BP Systolic 2018-04-03 14:46:00 120 mm[Hg] Location: LUE; [facility] Position: Sitting BP Diastolic 2018-04-03 14:46:00 70 mm[Hg] Location: LUE; [facility] Position: Sitting Height 2018-04-03 14:46:00 66 [in_us] [facility] Weight 2018-04-03 14:46:00 240 [lb_av] [facility] Body Mass Index 2018-04-03 14:46:00 38.74 kg/m2 [facility] Calculated Heart Rate 2018-04-03 14:46:00 96 /min [facility] BP Systolic 2018-03-20 13:49:00 120 mm[Hg] Location: LUE; [facility] Position: Sitting BP Diastolic 2018-03-20 13:49:00 66 mm[Hg] Location: LUE; [facility] Position: Sitting Height 2018-03-20 13:49:00 66 [in_us] [facility] Weight 2018-03-20 13:49:00 242 [lb_av] [facility] Body Mass Index 2018-03-20 13:49:00 39.06 kg/m2 [facility] Calculated Temperature 2018-03-20 13:49:00 98.4 [degF] Method: Oral [facility] Heart Rate 2018-03-20 13:49:00 116 /min [facility] O2 SAT 2018-03-20 13:49:00 98 % [facility] BP Systolic 2018-03-06 11:13:00 128 mm[Hg] Location: LUE; [facility] Position: Sitting BP Diastolic 2018-03-06 11:13:00 80 mm[Hg] Location: LUE; [facility] Position: Sitting Height 2018-03-06 11:13:00 66 [in_us] [facility] Weight 2018-03-06 11:13:00 241 [lb_av] [facility] Body Mass Index 2018-03-06 11:13:00 38.9 kg/m2 [facility] Calculated Temperature 2018-03-06 11:13:00 98.1 [degF] Method: Oral [facility] Heart Rate 2018-03-06 11:13:00 99 /min [facility] BP Systolic 2018-02-20 13:54:00 118 mm[Hg] Location: LUE; [facility] Position: Sitting BP Diastolic 2018-02-20 13:54:00 70 mm[Hg] Location: LUE; [facility] Position: Sitting Height 2018-02-20 13:54:00 66 [in_us] [facility] Weight 2018-02-20 13:54:00 239 [lb_av] [facility] Body Mass Index 2018-02-20 13:54:00 38.58 kg/m2 [facility] Calculated BP Systolic 2018-01-28 11:29:00 120 mm[Hg] Location: LUE; [facility] Position: Sitting BP Diastolic 2018-01-28 11:29:00 66 mm[Hg] Location: LUE; [facility] Position: Sitting Height 2018-01-28 11:29:00 66 [in_us] [facility] Weight 2018-01-28 11:29:00 235.25 [lb_av] [facility] Body Mass Index 2018-01-28 11:29:00 37.97 kg/m2 [facility] Calculated Temperature 2018-01-28 11:29:00 98.4 [degF] Method: Oral [facility] Heart Rate 2018-01-28 11:29:00 77 /min [facility] O2 SAT 2018-01-28 11:29:00 97 % [facility] BP Systolic 2018-01-14 11:29:00 120 mm[Hg] Location: LUE; [facility] Position: Sitting BP Diastolic 2018-01-14 11:29:00 78 mm[Hg] Location: LUE; [facility] Position: Sitting Height 2018-01-14 11:29:00 66 [in_us] [facility] Weight 2018-01-14 11:29:00 233 [lb_av] [facility] Body Mass Index 2018-01-14 11:29:00 37.61 kg/m2 [facility] Calculated BP Systolic 2017-12-19 15:25:00 108 mm[Hg] Location: LUE; [facility] Position: Sitting BP Diastolic 2017-12-19 15:25:00 62 mm[Hg] Location: LUE; [facility] Position: Sitting Height 2017-12-19 15:25:00 66 [in_us] [facility] Weight 2017-12-19 15:25:00 226 [lb_av] [facility] Body Mass Index 2017-12-19 15:25:00 36.48 kg/m2 [facility] Calculated BP Systolic 2017-11-21 11:28:00 122 mm[Hg] Location: LUE; [facility] Position: Sitting BP Diastolic 2017-11-21 11:28:00 80 mm[Hg] Location: LUE; [facility] Position: Sitting Height 2017-11-21 11:28:00 66 [in_us] [facility] Weight 2017-11-21 11:28:00 219 [lb_av] [facility] Body Mass Index 2017-11-21 11:28:00 35.35 kg/m2 [facility] Calculated BP Systolic 2017-10-24 15:25:00 114 mm[Hg] Location: LUE; [facility] Position: Sitting BP Diastolic 2017-10-24 15:25:00 70 mm[Hg] Location: LUE; [facility] Position: Sitting Height 2017-10-24 15:25:00 66 [in_us] [facility] Weight 2017-10-24 15:25:00 214 [lb_av] [facility] Body Mass Index 2017-10-24 15:25:00 34.54 kg/m2 [facility] Calculated Temperature 2017-10-24 15:25:00 97.8 [degF] Method: Oral [facility] Procedures Procedure Date / Time Performed Performing Clinician Sourc e [LH] GC/CT by Amp Det 2019-03-18 00:00:00 [facility] (APTIMA) . [facility] - GC/Chlamydia 2019-03-18 00:00:00 [facility] [QLH] CULTURE, URINE, 2018-12-04 00:00:00 [facility] ROUTINE . [facility] - PAP 2018-07-24 00:00:00 [facility] [QLH] RPR 2018-07-24 00:00:00 [facility] [QH] HIV AB, HIV 1/2, EIA, 2018-07-24 00:00:00 [facility] WITH REFLEXES [QH] HEPATITIS B SURFACE 2018-07-24 00:00:00 [facility] ANTIGEN W/REFL CONFIRM [QLH] HEPATITIS C ANTIBODY 2018-07-24 00:00:00 [facility] [QH] STREPTOCOCCUS, GROUP B 2018-04-03 00:00:00 [facility] CULTURE (Genital Strep Screen) [QLH] RPR 2018-04-03 00:00:00 [facility] [QLH] CBC (INCLUDES 2018-04-03 00:00:00 [facility] DIFF/PLT) [QH] HIV AB, HIV 1/2, EIA, 2018-04-03 00:00:00 [facility] WITH REFLEXES [QH] GLUCOSE, GESTATIONAL 2018-01-14 00:00:00 [facility] SCREEN (50G)-130 CUTOFF [QLH] CBC (INCLUDES 2018-01-14 00:00:00 [facility] DIFF/PLT) [H] Alpha Fetoprotein (Only) 2017-11-21 00:00:00 [facility] Maternal Screen [H] Obstetrics Panel 2017-10-24 00:00:00 [facility] (includes CBCw/Diff,RPR, HbsAg,RubIgG,Type and Screen) [QH] HIV AB, HIV 1/2, EIA, 2017-10-24 00:00:00 [facility] WITH REFLEXES [QLH] CULTURE, URINE, 2017-10-24 00:00:00 [facility] ROUTINE [QLH] URINALYSIS, COMPLETE 2017-10-24 00:00:00 [facility] [H] Hemoglobin 2017-10-24 00:00:00 [facility] Electrophoresis and Interpretation [QH] [id number] 2017-10-24 00:00:00 [facility] DEHYDROGENASE, QUANT. [QLH] BV/ VAGINITIS PANEL 2017-10-24 00:00:00 [facility] DNA PROBE AFFIRM [LH] GC/CT by Amp Det 2017-10-24 00:00:00 [facility] (APTIMA) History Of Prior Surgery [facility] Encounters Start End Encounter Admission Attending Care Care Encounter Source Date/Time Date/Time Type Type Clinicians Facility Department ID 2019 2019 Emergency E BUZZ, MHBL MHBL [id number] MHBL 05:31:00 06:13:00 SABHA 2019-03-17 2019-03-17 Tony LOWE [facility] [id number] [place] 16:00:00 16:00:00 t; [facility] 2019-02-24 2019-02-24 Tony LOWE [facility] [id number] [place] 08:30:00 08:30:00 t; [facility] 2018-12-04 2018-12-04 Tony LOWE [facility] [id number] [place] 11:30:00 11:30:00 t; [facility] 2018-07-24 2018-07-24 Tony LOWE [facility] [id number] [place] 10:15:00 10:15:00 t; [facility] 2018-05-22 2018-05-22 Tony LOWE [facility] [id number] [place] 14:15:00 14:15:00 t; ROXY LOWE [place] Yissel Romero M.D. 2018-04-17 2018-04-17 Tony LOWE [facility] [id number] [place] 11:30:00 11:30:00 t; ROXY LOWE [place] Yissel Romero M.D. 2018-04-03 2018-04-03 Tony LOWE [facility] [id number] [place] 14:00:00 14:00:00 t; ROXY LOWE [facility] ici Yissel RAMSEY M.D. 2018-03-20 2018-03-20 Appointmen [facility] [id number] [place] 13:30:00 13:30:00 t; ROXY LOWE [facility] TAMIKA, M.D. [place] ans M.D. 2018-03-06 2018-03-06 Appointmen [facility] [id number] [place] 10:45:00 10:45:00 t; ROXY LOWE [place] Yissel Romero M.D. 2018-02-20 2018-02-20 Appointmen [facility] [id number] [place] 13:45:00 13:45:00 t; ROXY LOWE Center [facility] ici TAMIKA, M.D. [place] ans M.D. 2018-01-28 2018-01-28 Appointmen [facility] [id number] [place] 10:45:00 10:45:00 t; ROXY LOWE [place] Yissel Romero M.D. 2018-01-14 2018-01-14 Appointmen [facility] [id number] [place] 10:45:00 10:45:00 t; ROXY LOWE Center [facility] ici TAMIKA, M.D. [place] ans M.D. 2017-12-20 2017-12-20 [facility] [id number] [place] 10:45:00 10:45:00 t; WOMENS, ROOM-1 [facility] ROOM-1 [facility] 2017-12-19 2017-12-19 Appointmen [facility] [id number] [place] 15:15:00 15:15:00 t; ROXY LOWE [place] Yissel Romero M.D. 2017-11-21 2017-11-21 Appointmen [facility] [id number] [place] 10:45:00 10:45:00 t; ROXY LOWE [place] Yissel Romero M.D. 2017-11-01 2017-11-01 [facility] [id number] [place] 14:00:00 14:00:00 t; WOMENS, ROOM-1 [facility] ROOM-1 [facility] 2017-11-01 2017-11-01 Appointmen JODIE LERMA [facility] [id number] [place] 13:00:00 13:00:00 t; WOMENNaa, COUNSELING Physici COUNSELING ans 2017-10-24 2017-10-24 Appointmen JODIE LOWE [facility] [id number] [place] 15:00:00 15:00:00 [facility] Results Test Description Test Time Test Comments Results Result Comments Source . [facility] - GC/Chlamydia 2019-03-18 00:00:00 Test Item Value Reference Range Interpretation Comme nts Case (test code = Case) Click ImageLink button for report. N Specimen 1 (test code = Specimen 1) Click ImageLink button for repo rt. N [facility][O] Urine Dipstick (In Office)2018-12-04 13:38:00 Test Item Value Reference Range Interpretation Comments Glucose (test code = Glucose) negative N LEUKOCYTES (test code = LEUKOCYTES) small A NITRITE; Abnormal (test code = positive A 86744-0) UROBILINOGEN; Abnormal (test code = 1.0 A 13976-7) PROTEIN; Abnormal (test code = trace A 73048-6) pH (test code = pH) 6.0 A URINE BLOOD; Abnormal (test code = trace A 34960-9) SPECIFIC GRAVITY; Abnormal (test 1.025 A code = 2965-2) KETONES; Normal (test code = negative N 09521-2) BILIRUBIN; Normal (test code = negative N 58978-6) COLOR URINE; Normal (test code = yellow N 5778-6) [facility][O] Urine Test (in office)2018-12-04 11:28:00 Test Item Value Reference Range Interpretation Comments Test, Urine; Abnormal positive A (test code = 2106-3) Control Line Present? (test code = Yes N Control Line Present?) Test Lot# (test code = Test Lot#) [id number] N [facility]] CULTURE, URINE, [id number] 00:00:01 Test Item Value Reference Range Interpretation Comments FINAL REPORT (test code <10,000 CFU/mL Skin = FINAL REPORT) Che [facility]] [id number] 11:14:01 Test Item Value Reference Range Interpretation Comments RPR (test code = 50898-1) Non-Reactive Non-Reactive [facility][Q] HEPATITIS B SURFACE ANTIGEN W/REFL [id number] 11:14:01 Test Item Value Reference Range Interpretation Comments Hepatitis B Surface Antigen (test Negative Negative code = 5195-3) [facility][QL] HEPATITIS C [id number] 11:14:01 Test Item Value Reference Range Interpretation Comments Hepatitis C Antibody (test code = Negative 19178-5) [facility][Q] HIV AB, HIV 1/2, EIA, WITH [id number] 11:14:01 Test Item Value Reference Range Interpretation Comments HIV Ag/Ab 4th Gen Negative Negative HIV test r esults should be (test code = considered posi tive only 52905-6) when both the s creening andthe confirma tory tests are positive. A negative confirmatory te st in patientswith a positive screening test does not exclude HIV inf ection. If clincallywarran dayan, an HIV RNA quantitativ e test should be order ed. [facility]. [facility] - [id number] 00:00:00 Test Item Value Reference Range Interpretation Comments PAP REPORT (test code = 52520-7) See Comment [facility]] CBC (INCLUDES DIFF/PLT)2018-04-03 15:44:01 Test Item Value Reference Range Interpretation Comments WBC (test code = 6690-2) 9.4 {K/CMM} 3.7-10.4 RBC; Below Low Threshold (test 3.63 {M/CMM} 4.20-5.40 code = 789-8) Hgb; Below Low Threshold (test 10.2 g/dl 12.0-16.0 code = 718-7) Hct; Below Low Threshold (test 32.0 % 36.0-48.0 code = 10682-8) MCV (test code = 787-2) 88.3 fL 80.0-98.0 MCH (test code = 785-6) 28.1 pg 27.0-31.0 MCHC; Below Low Threshold (test 31.8 g/dl 32.0-36.0 code = 786-4) RDW; Above High Threshold (test 15.7 % 11.5-14.5 code = 788-0) Platelet (test code = 72635-4) 319 {K/CMM} 133-450 Mean Platelet Volume (test code 9.0 fL 7.4-10.4 = 87313-4) [facility][QL] [id number] 15:44:01 Test Item Value Reference Range Interpretation Comments Segmented Neutrophils (test code 72.6 % 45.0-75.0 = 53137-7) Monocytes (test code = 29482-4) 7.3 % 2.0-12.0 Lymphocytes; Below Low Threshold 18.6 % 20.0-40.0 (test code = 11763-2) Eosinophils (test code = 13619-4) 1.2 % 0.0-4.0 Basophils (test code = 706-2) 0.3 % 0.0-1.0 Segs-Bands # (test code = 6.8 {K/CMM} 1.5-8.1 16710-4) Lymphocytes # (test code = 1.7 {K/CMM} 1.0-5.5 41186-8) Monocytes # (test code = 85651-8) 0.7 {K/CMM} 0.0-0.8 Eosinophils # (test code = 0.1 {K/CMM} 0.0-0.5 03517-7) [facility][QL] [id number] 15:44:01 Test Item Value Reference Range Interpretation Comments RPR (test code = 00080-0) Non-Reactive Non-Reactive [facility][Q] HIV AB, HIV 1/2, EIA, WITH [id number] 15:44:01 Test Item Value Reference Range Interpretation Comments HIV Ag/Ab 4th Gen Negative Negative HIV test r esults should be (test code = considered posi tive only 36795-9) when both the s creening andthe confirma tory tests are positive. A negative confirmatory te st in patientswith a positive screening test does not exclude HIV inf ection. If clincallywarran dayan, an HIV RNA quantitativ e test should be order ed. [facility][Q] STREPTOCOCCUS, GROUP B CULTURE (Genital Strep Screen) 2018-04-03 15:44:01 Test Item Value Reference Range Interpretation Comments FINAL REPORT (test No Beta-Hemolytic code = FINAL REPORT) Streptococci Isolated [facility][QL] CBC (INCLUDES DIFF/PLT)2018-01-16 14:52:01 Test Item Value Reference Range Interpretation Comments WBC; Above High Threshold (test 12.1 {K/CMM} 3.7-10.4 code = 6690-2) RBC; Below Low Threshold (test 3.34 {M/CMM} 4.20-5.40 code = 789-8) Hgb; Below Low Threshold (test 9.5 g/dl 12.0-16.0 code = 718-7) Hct; Below Low Threshold (test 29.7 % 36.0-48.0 code = 12567-0) MCV (test code = 787-2) 89.1 fL 80.0-98.0 MCH (test code = 785-6) 28.5 pg 27.0-31.0 MCHC (test code = 786-4) 32.0 g/dl 32.0-36.0 RDW (test code = 788-0) 13.8 % 11.5-14.5 Platelet (test code = 08796-2) 391 {K/CMM} 133-450 Mean Platelet Volume (test code 9.0 fL 7.4-10.4 = 75568-6) [facility]] [id number] 14:52:01 Test Item Value Reference Range Interpretation Comments Segmented Neutrophils (test code 69.8 % 45.0-75.0 = 97796-3) Monocytes (test code = 87519-5) 6.7 % 2.0-12.0 Lymphocytes (test code = 23863-0) 21.5 % 20.0-40.0 Eosinophils (test code = 96541-0) 1.6 % 0.0-4.0 Basophils (test code = 706-2) 0.4 % 0.0-1.0 Segs-Bands #; Above High 8.4 {K/CMM} 1.5-8.1 Threshold (test code = 88798-0) Lymphocytes # (test code = 2.6 {K/CMM} 1.0-5.5 16432-8) Monocytes # (test code = 84506-0) 0.8 {K/CMM} 0.0-0.8 Eosinophils # (test code = 0.2 {K/CMM} 0.0-0.5 71511-1) Basophils # (test code = 09853-4) 0.1 {K/CMM} 0.0-0.2 [facility][QH] GLUCOSE, GESTATIONAL SCREEN (50G)-130 [id number] 14:52:01 Test Item Value Reference Range Interpretation Comments Glucose Challenge (test code = 94.0 mg/dl <=140.0 1504-0) [facility][H] Alpha Fetoprotein (Only) Maternal [id number] 12:33:01 Test Item Value Reference Interpretation Comments [...] of 0.76 Median AFP (test code = 80025-0) Risk for NTD 54191 (OBS) (test code = Risk for NTD [...] Syndro meor Trisomy 18 is desired, contact [facility] to discuss availab le options. The AmericanCol lege of Obstetricians a nd Gynecologists recommendsamnio centesis be offered to wome n age 35 and older. Comment Comment Joanie Garcia, (Maternal Scrn) Ph.D., [facility] Principal (test code = Genetics Techni eran Comment DirectorReferecatie hammer: (Maternal Scrn)) Available U marbin Request.Multipl es Of Median Cutoffs For AFP ElevationsSingl eton 2.5 Black 2.8IDD 2. 0 Twins 4.5 Abbreviation De finitionsIDD - Insulin Dep D iabetesOSBR - Open Spina Bi fida RiskFor further inquiri es contact [facility] at [phone]. Performed At: [facility] [id number] [place], [place] [id number] glen Hope MD Ph :[phone] Insulin N Dependent? (test code = Insulin [...] code = Donor Age at Egg Retrieval) [facility]] BV/ VAGINITIS PANEL DNA PROBE [id number] 20:16:01 Test Item Value Reference Range Interpretation Comments Trichomonas vaginalis DNA (test code Negative Negative = 82103-9) Gardnerella vaginalis DNA; Abnormal Positive Negative A (test code = 6410-5) Hailey sp. DNA (test code = Negative Negative 18141-3) [facility][] GC/CT by Amp Det (APTIMA)2017-10-24 20:16:01 Test Item Value Reference Range Interpretation Comments Source APTIMA Vaginal (test code = Source APTIMA) N gonorrhea by Amp Negative Negative The APTIM A assay is a Det (APTIMA) (test target am plification code = 53696-2) nucleic acid probe test utilizingtarget capture for the qualitative detection and differentia tion of ribosomalRNA fr om Neisseria gonorrhoeae to aid in the diagnosis of di sease fromsymptomatic and asymptomatic in dividuals using the PANTH ER System.This ass ay utilizes FDA cleared IVD reagents. Performance pk racteristics havebeen verifi ed by the [facility] with in [facility].The [facility] is authorized unde r the Clinical LaboratoryImpro vement Amendments of 988 (CLIA-88) to pe rform high complexity test ing. C trachomatis by Negative Negative The APTIMA assay is a Amp Det (APTIMA) target ampl ification (test code = nucleic acid pr obe test 18471-8) utilizingtarget capture for the qualitative detection and differentia tion of ribosomalRNA fr om Chlamydia trachomatis to aid in the diagnosis of di sease fromsymptomatic and asymptomatic in dividuals using the PANTH ER System.This ass ay utilizes FDA cleared IVD reagents. Performance pk racteristics havebeen verifi ed by the [facility] with in [facility].The [facility] is authorized unde r the Clinical LaboratoryImpro vement Amendments of 988 (CLIA-88) to pe rform high complexity test ing. C trachomatis by Negative Negative The APTIMA assay is a Amp Det (APTIMA) target ampl ification (test code = nucleic acid pr obe test 76183-4) utilizingtarget capture for the qualitative detection and differentia tion of ribosomalRNA fr om Chlamydia trachomatis to aid in the diagnosis of di sease fromsymptomatic and asymptomatic in dividuals using the PANTH ER System.This ass ay utilizes FDA cleared IVD reagents. Performance kp racteristics havebeen verifi ed by the [facility] with in [facility] is authorized unde r the Clinical LaboratoryImpro vement Amendments of 988 (CLIA-88) to pe rform high complexity test ing. [facility][H] Obstetrics Panel (includes CBCw/Diff,RPR, HbsAg,RubIgG,Type and [...] 34.4 % 36.0-48.0 Threshold (test code = 30049-0) MCV (test code = 88.1 fL 80.0-98.0 787-2) MCH (test code = 29.1 pg 27.0-31.0 60179-0) MCHC (test code = 33.0 g/dl 32.0-36.0 786-4) RDW (test code = 14.2 % 11.5-14.5 788-0) Platelet (test code = 427 {K/CMM} 133-450 777-3) MPV (test code = 9.2 fL 7.4-10.4 91810-6) Rubella IgG (test code 54.9 {IU/ml} >=10.0 Refer ence Range: = 16279-2) Immune >= 10 IU /mL Hep Bs Ag (test code = Negative Negative 5195-3) Segs (test code = 73.3 % 45.0-75.0 95965-3) Monocytes # (test code 0.7 {K/CMM} 0.0-0.8 = 87679-5) Lymphocytes (test code 18.5 % 20.0-40.0 = Lymphocytes) Eosinophils (test code 1.5 % 0.0-4.0 = Eosinophils) Basophils # (test code 0.0 {K/CMM} 0.0-0.2 = 66563-4) Segs-Bands #; Above 8.2 {K/CMM} 1.5-8.1 High Threshold (test code = 78985-3) Lymphocytes # (test 2.1 {K/CMM} 1.0-5.5 code = 73524-6) Eosinophils # (test 0.2 {K/CMM} 0.0-0.5 code = 58518-6) RPR (test code = Non-Reactive Non-Reactive 42970-6) [facility][QL] URINALYSIS, [id number] 16:30:01 Test Item Value Reference Range Interpretation Comments UA Turbidity; Abnormal (test code Marked Clear A = 23485-8) UA Spec Grav (test code = 5810-7) 1.024 <=1.030 UA pH (test code = 5803-2) 6.0 5.0-8.0 UA Protein; Abnormal (test code = 30 mg/dl Negative A 34071-3) UA Glucose (test code = 77907-3) Negative Negative UA Ketones; Abnormal (test code = Trace Negative A 98917-1) UA Bili (test code = 5770-3) Negative Negative UA Blood; Abnormal (test code = Moderate Negative A 5794-3) UROBILINOGEN; Above High Threshold 4.0 mg/dl 0.1-1.0 (test code = 65685-7) UA Nitrite (test code = 5802-4) Negative Negative UA Leuk Est; Abnormal (test code = Moderate Negative A 5799-2) UA RBC; Above High Threshold (test 37 {/HPF} 0-2 code = 52467-8) UA WBC; Above High Threshold (test 60 {/HPF} 0-5 code = 39283-4) UA Bacteria; Abnormal (test code = Moderate None Seen A 86870-0) UA Mucus; Abnormal (test code = Many None Seen A 8247-9) UA Sq Epi (test code = 77889-4) Occasional Few UA Color (test code = 5778-6) Mar[facility]a [facility][Q] HIV AB, HIV 1/2, EIA, WITH [id number] 16:30:01 Test Item Value Reference Range Interpretation Comments HIV Ag/Ab 4th Gen Negative Negative HIV test r esults should be (test code = considered posi tive only 14993-9) when both the s creening andthe confirma tory tests are positive. A negative confirmatory te st in patientswith a positive screening test does not exclude HIV inf ection. If clincallywarran dayan, an HIV RNA quantitativ e test should be order ed. [facility][QL] CULTURE, URINE, [id number] 16:30:01 Test Item Value Reference Range Interpretation Comments ORGANISM (test code = Citrobacter koseri 699-9) FINAL REPORT (test >100,000 CFU/mL code = FINAL REPORT) Citrobacter koseri 50,000 - 100,000 CFU/mL Skin Che [facility][H] [id number] 16:30:01 Test Item Value Reference Range Interpretation [...] Trimethoprim/Sulfamet Interm ediate, hoxazole) N/A= Not Applicable [facility][H] Hemoglobin Electrophoresis and [id number] 16:30:01 Test Item Value Reference Interpretation Comments Range Hgb A % (test code 97.3 % 95.8-97.8 = 4546-8) Hgb A2 % (test code 2.7 % 2.2-3.2 = 4552-6) Hgb F % (test code 0.0 % 0.0-1.0 = 10903-9) Hgb S % (test code 0.0 % 0.0-0.0 = 70231-3) Hgb C % (test code 0.0 % 0.0-0.0 = 60037-5) Hemoglobin SEE NOTES No abnormal hem oglobins are Electrophoresis detected. Th is is a normal Interpretation hemoglobinele ctrophoresis (test code = pattern.The romina ctronic 34096-1) medical record has been reviewed forrel evant medical information.Jorge estevez personally reviewed the te st results andconcur with the resident's interpretation. CPT 64108-CKJixnzsu glenroy Signature Edita Villarreal MD 10/28/17 10:54 AM [facility][O] Urine Test (in office)2017-10-24 15:41:00 Test Item Value Reference Range Interpretation Comments Test, Urine; Abnormal positive A (test code = 2106-3) [facility]
[2021-12-13 11:45] LABS: Urine Blood Negative (Negative); Urine Glucose Negative (Negative); Urine Protein Negative (Negative); Urine pH 7.5 (5.0-7.0)
[2021-12-13 11:57] LABS: Absolute Lymphocytes (CBC) 2.8 K/uL (0.7-4.9); Hematocrit 35.5 % (36.0-45.0); Lymphocytes % 30.8 % (15.3-44.8); MCV 89.2 fL (80-100); MPV 8.3 fL (7.6-11.3); RBC Red Blood Cell Count 3.98 M/uL (3.86-4.86)
[2021-12-13 12:36] LABS: Urine Mucus Slight /HPF (None Seen); Urine RBC <5 /HPF (None Seen); Urine WBC Clump Rare /HPF (None Seen)
[2021-12-13 12:49] LABS: Potassium 3.5 mmol/L (3.5-5.1)
--- NOTE | 2021-12-13 12:59 | RAD REPORT ---
EXAM DESCRIPTION: US - Transvaginal OB - 12/13/2021 12:42 pm CLINICAL HISTORY: ABD CRAMPING, COMPARISON: No comparisons FINDINGS: An oval fluid-filled sac is present in the fundal portion of the endometrial cavity. [place] ge gestational sac diameter would correspond to a 5 week 3 day age. There is no pole visible. Y olk sac is questionable. No intrauterine hematoma or mass. Endometrium-myometrium interface is normal . No suspicious myometrial mass. No blood or fluid in the cul de sac. A 3.3 centimeter thin-walled anechoic right ovarian cyst is present. Small follicles are identified i n each ovary. No adnexal mass to suspect ectopic . IMPRESSION: Fluid-filled sac in the fundal portion of the endometrial cavity is most likely a very e rony IUP at 5 weeks 3 days. Currently there is no pole identified and only questionable presence of a yolk sac. Right ovarian 3.3 centimeter cyst. No finding to suspect ectopic .
--- NOTE | 2021-12-13 13:42 | ER ---
Nurse's Notes [facility] Name: Ngoc Thomson Age: 30 yrs Sex: Female : 1990 Arrival Date: 12/13/2021 Time: 11:05 Bed 25 Private MD: Diagnosis: Less than 8 weeks gestation of Presentation: 12/13 11:25 Chief complaint: Patient states: Abdominal cramping and burning with urination x 2 jl7 days. Coronavirus screen: At this time, the client does not indicate any symptoms associated with coronavirus-19. Ebola Screen: No symptoms or risks identified at this time. Initial Sepsis Screen: Does the patient meet any 2 criteria? No. Patient's initial sepsis screen is negative. Does the patient have a suspected source of infection? No. Patient's initial sepsis screen is negative. Risk Assessment: Do you want to hurt yourself or someone else? Patient reports no desire to harm self or others. Onset of symptoms was December 12, 2021. 11:25 Method Of Arrival: Ambulatory jl7 11:25 Acuity: ENRIQUE 3 jl7 Triage Assessment: 11:27 General: Appears in no apparent distress. uncomfortable, Behavior is calm, cooperative, jl7 appropriate for age. Pain: Complains of pain in right lower quadrant and left lower quadrant Pain currently is 5 out of 10 on a pain scale. Quality of pain is described as crampy. GI: Patient currently denies diarrhea, nausea, vomiting. 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 - Social history:: Smoking status: Patient denies any tobacco usage or history of. Screenin:49 Abuse screen: Denies threats or abuse. Denies injuries from another. Nutritional ld1 screening: No deficits noted. Tuberculosis screening: No symptoms or risk factors identified. Fall Risk None identified. Assessment: 11:49 Reassessment: See triage assessment. ld1 13:51 GI: Bowel sounds present X 4 quads. ld1 13:52 GI: Abd is soft Abd is non tender. ld1 Vital Signs: 11:25 BP 120 / 80; Pulse 77; Resp 17; Temp 96.8; Pulse Ox 100% on R/A; Weight 105.69 kg; jl7 Height 5 ft. 6 in. (167.64 cm); Pain 5/10; 11:49 BP 123 / 76; Pulse 86; Resp 18; Pulse Ox 99% on R/A; ld1 12:56 BP 117 / 82; Pulse 85; Resp 18; Pulse Ox 100% on R/A; ld1 11:25 Body Mass Index 37.61 (105.69 kg, 167.64 cm) jl7 ED Course: 11:05 Patient arrived in ED. mr 11:20 [place] High FNP-C is PHCP. kb 11:20 Seferino Arroyo DO is Attending Physician. kb 11:27 Triage completed. jl7 11:27 Arm band placed on right wrist. jl7 11:38 Damaris Ware, LEO is Primary Nurse. ld1 11:38 No provider procedures requiring assistance completed. Inserted saline lock: 20 gauge ld1 in left antecubital area, using aseptic technique. Blood collected. 11:49 Patient has correct armband on for positive identification. Placed in gown. Bed in low ld1 position. Call light in reach. Side rails up X2. materials planner/production planner on. Pulse ox on. NIBP on. Door closed. Noise minimized. Warm blanket given. 12:36 US Transvaginal Ob In Process Unspecified. EDMS 13:52 IV discontinued, intact, bleeding controlled, No redness/swelling at site. ld1 Administered Medications: No medications were administered Medication: 11:49 VIS not applicable for this client. ld1 Outcome: 13:42 Discharge ordered by . kb 13:52 Discharged to home with family. ld1 13:52 Condition: stable 13:52 Discharge instructions given to patient, Instructed on discharge instructions, follow up and referral plans. Demonstrated understanding of instructions, follow-up care. 13:52 Patient left the ED. ld1 Signatures: Dispatcher [employer] EDMS [place] High FNP-C FNP-Zonia Mccloud Charli Walden RN RN jl7 Damaris Ware, RN RN ld1
--- NOTE | 2021-12-13 13:42 | EDPHYS ---
Physician Documentation [facility] Name: Ngoc Thomson Age: 30 yrs Sex: Female : 1990 Arrival Date: 12/13/2021 Time: 11:05 Bed 25 Private MD: ED Physician Seferino Arroyo HPI: 12/13 13:58 This 30 yrs old Black Female presents to ER via Ambulatory with complaints of , kb Abdominal Cramping, Urinary Problem. 13:58 The patient presents to the emergency department with abdominal pain, of the suprapubic kb area, described as crampy, urinary symptoms, dysuria. course: care: private OB physician. Previous pregnancies: in previous pregnancies patient has had. Associated signs and symptoms: Pertinent positives: abdominal pain, dysuria, Pertinent negatives: vaginal bleeding. The patient has not experienced similar symptoms in the past. The patient has not recently seen a physician. Pt reports positive test last week, lower abd cramping started 2 days ago. 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 - Social history:: Smoking status: Patient denies any tobacco usage or history of. ROS: 13:55 Constitutional: Negative for fever, chills, and weight loss. kb 13:55 Abdomen/GI: Positive for abdominal cramps. 13:55 : Positive for burning with urination. 13:55 All other systems are negative. Exam: 13:55 Constitutional: This is a well developed, well nourished patient who is awake, alert, kb and in no acute distress. Head/Face: Normocephalic, atraumatic. ENT: Moist Mucous membranes Cardiovascular: Regular rate and rhythm with a normal S1 and S2. No gallops, murmurs, or rubs. No pulse deficits. Respiratory: Respirations even and unlabored. No increased work of breathing. Talking in full sentences Abdomen/GI: Soft, non-tender. No distention Skin: Warm, dry with normal turgor. Normal color. MS/ Extremity: Pulses equal, no cyanosis. Neurovascular intact. Full, normal range of motion. Neuro: Awake and alert, GCS 15, oriented to person, place, time, and situation. Moves all extremities. Normal gait. Psych: Awake, alert, with orientation to person, place and time. Behavior, mood, and affect are within normal limits. Vital Signs: 11:25 BP 120 / 80; Pulse 77; Resp 17; Temp 96.8; Pulse Ox 100% on R/A; Weight 105.69 kg; jl7 Height 5 ft. 6 in. (167.64 cm); Pain 5/10; 11:49 BP 123 / 76; Pulse 86; Resp 18; Pulse Ox 99% on R/A; ld1 12:56 BP 117 / 82; Pulse 85; Resp 18; Pulse Ox 100% on R/A; ld1 11:25 Body Mass Index 37.61 (105.69 kg, 167.64 cm) jl7 MDM: 11:21 Patient medically screened. kb 13:52 Data reviewed: vital signs, nurses notes. Data interpreted: Pulse oximetry: on room air kb is 100 %. Interpretation: normal. Counseling: I had a detailed discussion with the patient and/or guardian regarding: the historical points, exam findings, and any diagnostic results supporting the discharge/admit diagnosis, lab results, radiology results, the need for outpatient follow up, an OB/Gyne specialist, to return to the emergency department if symptoms worsen or persist or if there are any questions or concerns that arise at home. 12/13 11:22 Order name: Abo/rh Typing; Complete Time: 13:00 kb 12/13 11:22 Order name: Basic Metabolic Panel; Complete Time: 13:00 kb 12/13 11:22 Order name: CBC with Diff; Complete Time: 12:04 kb 12/13 11:22 Order name: Quantitative Hcg; Complete Time: 13:00 kb 12/13 11:44 Order name: Urine Microscopic Only; Complete Time: 12:36 kb 12/13 11:45 Order name: Urine Dipstick-Ancillary; Complete Time: 11:45 EDMS 12/13 11:22 Order name: IV Saline Lock; Complete Time: 11:38 kb 12/13 11:22 Order name: Labs collected and sent; Complete Time: 11:38 kb 12/13 11:22 Order name: NPO; Complete Time: 11:38 kb 12/13 11:22 Order name: Urine Dipstick-Ancillary (obtain specimen); Complete Time: 11:38 kb 12/13 11:22 Order name: Urine Test (obtain specimen); Complete Time: 11:38 kb 12/13 11:44 Order name: US Transvaginal Ob; Complete Time: 13:05 kb 12/13 11:46 Order name: Urine --Ancillary (enter results); Complete Time: 13:00 bd Administered Medications: No medications were administered Disposition: 21:10 Co-signature as Attending Physician, Seferino Arroyo DO I was immediately available on-site ms3 in the Emergency Department for consultation in the care of the patient.. Disposition Summary: 12/13/21 13:42 Discharge Ordered Location: Home kb Condition: Stable kb Diagnosis - Less than 8 weeks gestation of kb Followup: kb - With: Emergency Department - When: As needed - Reason: Worsening of condition Followup: kb - With: Private Physician - When: 2 - 3 days - Reason: Recheck today's complaints, Continuance of care, Re-evaluation by your physician Discharge Instructions: - Discharge Summary Sheet kb - First Trimester of , [id number] kb Forms: - Medication Reconciliation Form kb - Thank You Letter kb - Antibiotic Education kb - Prescription Opioid Use kb Signatures: Dispatcher [employer] [place] Su, DEWAYNE LUA-Charli Keita, RN RN jl7 Seferino Arroyo DO DO ms3
[2021-12-13 14:00] VITALS: TEMP 96.8
[2021-12-13 14:03] VITALS: BP 117/82; O2SAT 100
== END 2021-12-13 13:52 | disposition home or self-care (01) ==
LOC: ER 11:00
DX: O26.891 Other specified pregnancy related conditions, first trimester (principal); Z3A.01 Less than 8 weeks gestation of pregnancy
CPT/HCPCS: 36415; 76817; 80048; 81003; 81015; 81025; 84702; 85025; 86900; 86901; 99284

== ENCOUNTER 2023-07-31 08:24 | Emergency (ER) | payer OTHER ==
--- OUTSIDE RECORDS SUMMARY | 2023-07-31 08:30 | XMS REPORT | Continuity of Care Document ---
Author Name Unknown Address [address] [facility] [address] [place] [address] [facility] Address [address] [facility] [place] [address] Care Team Providers Care Vegetable Grader Name Role Phone ALIREZA BAR Primary Care Physician Greer vailable CLAUDINE UNDERWOOD Attending Clinician Unavailable Claudine Underwood MD Attending Clinician [phone] Doctor Unassigned, [place] Attending Clinician U Baldemar Don CRNA Attending Clinician Miracle Meehan MD Attending Clinician + Alejandro Huddleston RN Attending Clinician Unavaila ble 2, [facility] Attending Clinician Unavailable Radiology Attending Clinician Unavailable RADIOLOGY Attending Clinician Unavailable REYNA BAR Attending Clinician UnavailReyna Sharma MD Attending Clinician VAHID GERBER Attending Clinician Unavailable ROXY LOWE M.D. Attending Clinician Unavaila ble WOMENS, ROOM-1 Attending Clinician Unavailable MARIA GUADALUPE, COUNSELING Attending Clinician CLAUDINE Camargo Admitting Clinician Claudine Villa MD Admitting Clinician ALIREZA BAR Admitting Clinician Edgardo ordonez Payers Payer Name Policy Type Policy Number Effective Date Expirati on Date Source ANSON MIRANDA [id number] 2021 00:00:00 [facility] [id number] 2021 00:00:00 Problems Condition Name Condition Details Condition Category Status Onset Date Resolution Date Last Treatment Date Treating Clinician Comments Source Obesity (BMI 30-39.9) Obesity (BMI 30-39.9) Disease Active 08-30 00:00: 00 [facility] Encounter for elective induction of labor Encounter for elective induction of labor Disease Active 07-31 00:00: 00 [facility] Liveborn infant, of simmons , born in hospital by vaginal delivery Liveborn , of simmons , born in hospital by vaginal delivery Disease Active 07-31 00:00: 00 [facility] Morbid obesity with body mass index of 40.0-49.9 Morbid obesity with body mass index of 40.0-49.9 Disease Active - 00:00: 00 [facility] Rubella immune Rubella immune Disease Active 2012-02 00:00: 00 [facility] Urinary tract infection, site not specified Urinary tract infection, site not specified Disease Active 2012-02 00:00: 00 Overview: Formattin g of this note might be different from the original. 2nd UTI in 4 months. Reports recurrent [facility] General counseling for initiation of other contracept preethi measures General counseling for initiation of other contracept preethi measures Disease Active 2012-02 00:00: 00 [facility] STD (sexually transmitte d disease) STD (sexually transmitte d disease) Disease Active 02-18 00:00: 00 Overview: Formattin g of this note might be different from the original. treated [facility] History of abnormal cervical Papanicola ou smear History of abnormal cervical Papanicola ou smear [facility] History of Nausea and vomiting in History of Nausea and vomiting in Problem [facility] Visit for confirmati on of test result with physical exam Visit for confirmati on of test result with physical exam Problem Active [facility] Vaginitis Vaginitis Problem Active [facility] Encounter for supervisio n of normal first in second trimester Encounter for supervisio n of normal first in second trimester Problem Active [facility] Constipati on in Constipati on in Problem Active [facility] Anemia Anemia Problem Active [facility] exam exam Problem Active [facility] UTI in UTI in Problem Active [facility] Oral contracept preethi prescribed Oral contracept preethi prescribed Problem Active [facility] Allergies, Adverse Reactions, Alerts Allergy Name Allergy Type Status Severity Reaction(s) Onset Date Inactive Date Treating Clinician Comments Source No Known Allergie s DA Active U 08-20 00:00: 00 AVELINA Jon [facility] NO KNOWN ALLERGIE S Drug Class Active [facility] Family History Family Member Diagnosis Comments Start Date Stop Date Sourc e Unknown Family Member Family history of hypertension Family History [facility] Unknown Family Member Family history of diabetes mellitus Family History [facility] Unknown Family Member Family history of thyroid disease Family History [facility] Social History Social Habit Start Date Stop Date Quantity Comments Source ASSERTION 2021-11-12 00:00:00 [facility] Gender identity [facility] of Social function 2022-09-28 00:00:00 2022-09-28 00:00:00 [facility] Alcohol intake 2022-09-28 00:00:00 2022-09-28 00:00:00 Current non-drinker of alcohol (finding) [facility] Exposure to SARS-CoV-2 (event) 2022-07-03 00:00:00 2022-07-13 10:21:00 Not sure [facility] Tobacco use and exposure 2022-07-06 00:00:00 2022-07-06 00:00:00 Smokeless tobacco non-user [facility] History of tobacco use 2013-01-14 00:00:00 Cigarette Smoker [facility] Sex Assigned At 1990 00:00:00 1990 00:00:00 [facility] Smoking Status Start Date Stop Date Source Never smoked tobacco (finding) [facility] Ex-smoker 2022-07-06 00:00:00 2022-07-06 00:00:00 [facility] Medications Ordered Medication Name Filled Medication Name Start Date Stop Date Current Medication? Ordering Clinician Indication Dosage Frequency Signature (SIG) Comments Components Source norethindro ne 0.35 mg tablet 08-30 00:00: 00 Yes [id number] .35mg Take 1 tablet by mouth in the morning. [facility] PNV no.95/brad us fum/folic ac ( ORAL) 08-01 16:14: 26 Yes Take by mouth. [facility] vitamin w/FA tablet 08-01 00:00: 00 Yes [id number] 102 1{tbl} Take 1 tablet by mouth in the morning. [facility] docusate 100 mg capsule 08-01 00:00: 00 Yes [id number] 102 200mg Take 2 capsules by mouth once daily as needed for Constipati on. [facility] ferrous sulfate 325 mg (65 mg iron) tablet 08-01 00:00: 00 Yes [id number] 102 325mg Take 1 tablet by mouth in the morning and 1 tablet in the evening. [facility] ibuprofen 600 mg tablet 08-01 00:00: 00 Yes [id number] 102 600mg Take 1 tablet by mouth every 6 (six) hours as needed (Pain). Take with food or milk. [facility] vitamin w/FA tablet 08-01 00:00: 00 Yes [id number] 102 1{tbl} Take 1 tablet by mouth in the morning. [facility] HYDROcodone -acetaminop hen (NORCO 5) 5-325 mg tablet 1 tablet 07-31 18:03: 07 Yes 1{tbl} 1 tablet, Oral, Q6HPRN, Starting on Sat07/31/22 at 1303, Until Discontinu ed, Routine, Pain (scale 7-10) [facility] ibuprofen (IBU) tablet 600 mg 07-31 18:03: 07 Yes 600mg 600 mg, Oral, Q6HPRN, Starting on Sat07/31/22 at 1303, Until Discontinu ed, Routine, Pain (scale 4-6) [facility] acetaminoph en (TYLENOL) tablet 650 mg 07-31 18:03: 07 Yes 650mg 650 mg, Oral, Q6HPRN, Starting on Sat07/31/22 at 1303, Until Discontinu ed, Routine, Pain (scale 1-3) [facility] diphenhydrA MINE (BENADRYL) tablet 25 mg 07-31 18:03: 07 Yes 25mg 25 mg, Oral, Q6HPRN, Starting on Sat07/31/22 at 1303, Until Discontinu ed, Routine, Sleep, Itching [facility] ondansetron (ZOFRAN (PF)) injection 4 mg 07-31 18:03: 07 Yes 4mg 4 mg, Slow IV Push, Q8HPRN, Starting on Sat07/31/22 at 1303, Until Discontinu ed, Routine, Nausea and Vomiting (N/V) [facility] simethicone (GAS RELIEF (SIMETHICON E)) chewable tablet 160 mg 07-31 18:03: 07 Yes 160mg 160 mg, Oral, PC+HSPRN, Starting on Sat07/31/22 at 1303, Until Discontinu ed, Routine, Gas [facility] docusate (COLACE) capsule 200 mg 07-31 18:03: 07 Yes 200mg 200 mg, Oral, QDAILYPRN, Starting on Sat07/31/22 at 1303, Until Discontinu ed, Routine, Constipati on [facility] magnesium hydroxide (MILK OF MAGNESIA) 400 mg/5 mL suspension 30 mL 07-31 18:03: 07 Yes 30mL 30 mL, Oral, QDAILYPRN, Starting on Sat07/31/22 at 1303, Until Discontinu ed, Routine, Constipati on [facility] benzocaine- menthol (DERMOPLAST ) 20-0.5 % topical spray 07-31 18:03: 07 Yes Topical, PRN, Starting on Sat07/31/22 at 1303, Until Discontinu ed, Routine, Perineum discomfort [facility] PIB fentaNYL-ro pivacaine 2 mcg/mL-0.1 % (PF) in NS 200 mL epidural infusion RTU 07-31 16:00: 00 07-31 20:38 :22 No Epidural, CONTINUOUS PRN, Starting on Sat07/31/22 at 1100, Until Sat07/31/22 at 1538, Routine, Intra-op [facility] lidocaine-e pinephrine (XYLOCAINE W/EPINEPHRI NE) 1.5 %-1:200,000 injection 07-31 15:53: 00 07-31 20:38 :22 No Epidural, ONCE INTRA PROCEDURE, Starting on Sat07/31/22 at 1053, Until Sat07/31/22 at 1538, Routine, Intra-op [facility] lidocaine 1% (XYLOCAINE) 100 mg/10 mL (1 %) injection 07-31 15:45: 00 07-31 20:38 :22 No Infiltrati on, ONCE INTRA PROCEDURE, Starting on Sat07/31/22 at 1045, Until Sat07/31/22 at 1538, Routine, Intra-op [facility] FENTanyl PF (SUBLIMAZE (PF)) injection 100 mcg 07-31 08:59: 19 07-31 18:04 :12 No 100ug 100 mcg, Slow IV Push, Q1HPRN, Starting on Sat07/31/22 at 0359, Until Sat07/31/22 at 1304, Routine, Pain (scale 4-6), Pain (scale 7-10) [facility] oxytocin (PITOCIN) 30 units in NS 500 mL IV infusion 07-31 08:59: 19 07-31 18:04 :12 No 2mU/min at 2-40 mL/hr, IV Infusion, TITRATE, Starting on Sat07/31/22 at 0359, Until Sat07/31/22 at 1304, AMARIS [facility] lactated ringers IV infusion 500 mL 07-31 08:59: 19 07-31 18:04 :12 No 500mL at 999 mL/hr, 500 mL, IV Infusion, PRN - SEE INSTRUCTIO NS, Starting on Sat07/31/22 at 0359, Until Sat07/31/22 at 1304, Routine [facility] D5W-LR IV infusion 1,000 mL 07-31 08:59: 19 07-31 18:04 :12 No 1000mL at 1-125 mL/hr, IV Infusion, TITRATE, Starting on Sat07/31/22 at 0359, Until Sat07/31/22 at 1304, Routine [facility] PNV no.95/brad us fum/folic ac ( ORAL) 07-31 03:54: 09 Yes Take by mouth. [facility] PNV no.95/brad us fum/folic ac ( ORAL) 07-06 09:26: 49 Yes Take by mouth. [facility] ondansetron 4 mg tablet 2021-02 00:00: 00 07-31 00:00 :00 No [id number] 1-2 tablets every 6 hours as needed for nausea [facility] cefdinir 300 mg capsule 2021-02 00:00: 00 01-27 05:59 :00 No [id number] 300mg Take 1 capsule by mouth every 12 (twelve) hours for 10 days. [facility] Norgestim-E th Estrad Triphasic 0.18/0.215/ 0.25 MG-25 MCG Oral Tablet Norgestim-E th Estrad Triphasic 0.18/0.215/ 0.25 MG-25 MCG Oral Tablet 03-17 00:00: 00 Yes ROXY LOWE M.D. 1 QD TAKE 1 TABLET DAILY. [facility] No known medications 07-22 08:43: 09 No No known medication s [facility] Vital Signs Vital Name Observation Time Observation Value Comments Naa koch Systolic blood pressure 2022-09-28 20:26:00 111 mm[Hg] [facility] Diastolic blood pressure 2022-09-28 20:26:00 74 mm[Hg] [facility] Heart rate 2022-09-28 20:26:00 78 /min [facility] Respiratory rate 2022-09-28 20:26:00 18 /min [facility] Body height 2022-09-28 20:26:00 167.6 cm [facility] Body weight 2022-09-28 20:26:00 107.502 kg [facility] BMI 2022-09-28 20:26:00 38.25 kg/m2 [facility] Systolic blood pressure 2022-08-30 20:50:00 106 mm[Hg] [facility] Diastolic blood pressure 2022-08-30 20:50:00 75 mm[Hg] [facility] Heart rate 2022-08-30 20:50:00 83 /min [facility] Body temperature 2022-08-30 20:50:00 36.78 Myrna [facility] Respiratory rate 2022-08-30 20:50:00 18 /min [facility] Body height 2022-08-30 20:50:00 167.6 cm [facility] Body weight 2022-08-30 20:50:00 108.41 kg [facility] BMI 2022-08-30 20:50:00 38.58 kg/m2 [facility] Heart rate 2022-08-01 19:00:00 76 /min [facility] Body temperature 2022-08-01 19:00:00 36.83 Myrna [facility] Respiratory rate 2022-08-01 19:00:00 16 /min [facility] Systolic blood pressure 2022-08-01 13:00:00 133 mm[Hg] [facility] Diastolic blood pressure 2022-08-01 13:00:00 81 mm[Hg] [facility] Oxygen saturation in Arterial blood by Pulse oximetry 2022-08-01 13:00:00 99 /min [facility] Body height 2022-07-31 09:14:00 167.6 cm [facility] Body weight 2022-07-31 09:14:00 119.387 kg [facility] BMI 2022-07-31 09:14:00 42.48 kg/m2 [facility] Systolic blood pressure 2022-07-24 20:39:00 127 mm[Hg] [facility] Diastolic blood pressure 2022-07-24 20:39:00 77 mm[Hg] [facility] Heart rate 2022-07-24 20:39:00 92 /min [facility] Body temperature 2022-07-24 20:39:00 36.67 Myrna [facility] Respiratory rate 2022-07-24 20:39:00 18 /min [facility] Body height 2022-07-24 20:39:00 167.6 cm [facility] Body weight 2022-07-24 20:39:00 120.657 kg [facility] BMI 2022-07-24 20:39:00 42.93 kg/m2 [facility] Systolic blood pressure 2022-07-13 15:37:00 117 mm[Hg] [facility] Diastolic blood pressure 2022-07-13 15:37:00 73 mm[Hg] [facility] Body height 2022-07-13 15:37:00 167.6 cm [facility] Body weight 2022-07-13 15:37:00 120.838 kg [facility] BMI 2022-07-13 15:37:00 43.00 kg/m2 [facility] Systolic blood pressure 2022-07-06 14:25:00 115 mm[Hg] [facility] Diastolic blood pressure 2022-07-06 14:25:00 75 mm[Hg] [facility] Heart rate 2022-07-06 14:25:00 93 /min [facility] Body temperature 2022-07-06 14:25:00 36.72 Myrna [facility] Body height 2022-07-06 14:25:00 167.6 cm [facility] Body weight 2022-07-06 14:25:00 119.75 kg [facility] BMI 2022-07-06 14:25:00 42.61 kg/m2 [facility] Systolic blood pressure 2022-01-16 13:52:00 122 mm[Hg] [facility] Diastolic blood pressure 2022-01-16 13:52:00 94 mm[Hg] [facility] Heart rate 2022-01-16 13:52:00 93 /min [facility] Body temperature 2022-01-16 13:52:00 36.83 Myrna [facility] Respiratory rate 2022-01-16 13:52:00 18 /min [facility] Body height 2022-01-16 13:52:00 167.6 cm [facility] Body weight 2022-01-16 13:52:00 78.926 kg [facility] BMI 2022-01-16 13:52:00 28.08 kg/m2 [facility] Oxygen saturation in Arterial blood by Pulse oximetry 2022-01-16 13:52:00 97 /min [facility] Systolic blood pressure 2019-03-17 16:42:00 120 mm[Hg] Location: RUE; Position: Sitting [facility] Diastolic blood pressure 2019-03-17 16:42:00 74 mm[Hg] Location: RUE; Position: Sitting [facility] Body height 2019-03-17 16:42:00 66 [in_us] [facility] Weight 2019-03-17 16:42:00 195 [lb_av] [facility] Body mass index (BMI) [Ratio] 2019-03-17 16:42:00 31.47 kg/m2 [facility] Heart Rate 2019-03-17 16:42:00 83 /min [facility] BP Systolic 2019-02-24 08:36:00 126 mm[Hg] Location: LUE; Position: Sitting [facility] BP Diastolic 2019-02-24 08:36:00 80 mm[Hg] Location: LUE; Position: Sitting [facility] Height 2019-02-24 08:36:00 66 [in_us] [facility] Weight 2019-02-24 08:36:00 191 [lb_av] [facility] Body Mass Index Calculated 2019-02-24 08:36:00 30.83 kg/m2 [facility] Heart Rate 2019-02-24 08:36:00 98 /min [facility] BP Systolic 2018-12-04 11:31:00 118 mm[Hg] Location: LUE; Position: Sitting [facility] BP Diastolic 2018-12-04 11:31:00 74 mm[Hg] Location: LUE; Position: Sitting [facility] Height 2018-12-04 11:31:00 66 [in_us] [facility] Weight 2018-12-04 11:31:00 189 [lb_av] [facility] Body Mass Index Calculated 2018-12-04 11:31:00 30.51 kg/m2 [facility] Heart Rate 2018-12-04 11:31:00 85 /min [facility] BP Systolic 2018-07-24 10:21:00 124 mm[Hg] Location: RUE; Position: Sitting [facility] BP Diastolic 2018-07-24 10:21:00 78 mm[Hg] Location: RUE; Position: Sitting [facility] Height 2018-07-24 10:21:00 66 [in_us] [facility] Weight 2018-07-24 10:21:00 200 [lb_av] [facility] Body Mass Index Calculated 2018-07-24 10:21:00 32.28 kg/m2 [facility] Temperature 2018-07-24 10:21:00 98.2 [degF] Method: Oral [facility] Heart Rate 2018-07-24 10:21:00 82 /min [facility] BP Systolic 2018-05-22 14:48:00 124 mm[Hg] Location: RUE; Position: Sitting [facility] BP Diastolic 2018-05-22 14:48:00 72 mm[Hg] Location: RUE; Position: Sitting [facility] Height 2018-05-22 14:48:00 66 [in_us] [facility] Weight 2018-05-22 14:48:00 207 [lb_av] [facility] Body Mass Index Calculated 2018-05-22 14:48:00 33.41 kg/m2 [facility] BP Systolic 2018-04-17 11:43:00 128 mm[Hg] Location: LUE; Position: Sitting [facility] BP Diastolic 2018-04-17 11:43:00 78 mm[Hg] Location: LUE; Position: Sitting [facility] Height 2018-04-17 11:43:00 66 [in_us] [facility] Weight 2018-04-17 11:43:00 243 [lb_av] [facility] Body Mass Index Calculated 2018-04-17 11:43:00 39.22 kg/m2 [facility] Heart Rate 2018-04-17 11:43:00 108 /min [facility] BP Systolic 2018-04-03 14:46:00 120 mm[Hg] Location: LUE; Position: Sitting [facility] BP Diastolic 2018-04-03 14:46:00 70 mm[Hg] Location: LUE; Position: Sitting [facility] Height 2018-04-03 14:46:00 66 [in_us] [facility] Weight 2018-04-03 14:46:00 240 [lb_av] [facility] Body Mass Index Calculated 2018-04-03 14:46:00 38.74 kg/m2 [facility] Heart Rate 2018-04-03 14:46:00 96 /min [facility] BP Systolic 2018-03-20 13:49:00 120 mm[Hg] Location: LUE; Position: Sitting [facility] BP Diastolic 2018-03-20 13:49:00 66 mm[Hg] Location: LUE; Position: Sitting [facility] Height 2018-03-20 13:49:00 66 [in_us] [facility] Weight 2018-03-20 13:49:00 242 [lb_av] [facility] Body Mass Index Calculated 2018-03-20 13:49:00 39.06 kg/m2 [facility] Temperature 2018-03-20 13:49:00 98.4 [degF] Method: Oral [facility] Heart Rate 2018-03-20 13:49:00 116 /min [facility] O2 SAT 2018-03-20 13:49:00 98 % [facility] BP Systolic 2018-03-06 11:13:00 128 mm[Hg] Location: LUE; Position: Sitting [facility] BP Diastolic 2018-03-06 11:13:00 80 mm[Hg] Location: LUE; Position: Sitting [facility] Height 2018-03-06 11:13:00 66 [in_us] [facility] Weight 2018-03-06 11:13:00 241 [lb_av] [facility] Body Mass Index Calculated 2018-03-06 11:13:00 38.9 kg/m2 [facility] Temperature 2018-03-06 11:13:00 98.1 [degF] Method: Oral [facility] Heart Rate 2018-03-06 11:13:00 99 /min [facility] BP Systolic 2018-02-20 13:54:00 118 mm[Hg] Location: LUE; Position: Sitting [facility] BP Diastolic 2018-02-20 13:54:00 70 mm[Hg] Location: LUE; Position: Sitting [facility] Height 2018-02-20 13:54:00 66 [in_us] [facility] Weight 2018-02-20 13:54:00 239 [lb_av] [facility] Body Mass Index Calculated 2018-02-20 13:54:00 38.58 kg/m2 [facility] BP Systolic 2018-01-28 11:29:00 120 mm[Hg] Location: LUE; Position: Sitting [facility] BP Diastolic 2018-01-28 11:29:00 66 mm[Hg] Location: LUE; Position: Sitting [facility] Height 2018-01-28 11:29:00 66 [in_us] [facility] Weight 2018-01-28 11:29:00 235.25 [lb_av] [facility] Body Mass Index Calculated 2018-01-28 11:29:00 37.97 kg/m2 [facility] Temperature 2018-01-28 11:29:00 98.4 [degF] Method: Oral [facility] Heart Rate 2018-01-28 11:29:00 77 /min [facility] O2 SAT 2018-01-28 11:29:00 97 % [facility] BP Systolic 2018-01-14 11:29:00 120 mm[Hg] Location: LUE; Position: Sitting [facility] BP Diastolic 2018-01-14 11:29:00 78 mm[Hg] Location: LUE; Position: Sitting [facility] Height 2018-01-14 11:29:00 66 [in_us] [facility] Weight 2018-01-14 11:29:00 233 [lb_av] [facility] Body Mass Index Calculated 2018-01-14 11:29:00 37.61 kg/m2 [facility] BP Systolic 2017-12-19 15:25:00 108 mm[Hg] Location: LUE; Position: Sitting [facility] BP Diastolic 2017-12-19 15:25:00 62 mm[Hg] Location: LUE; Position: Sitting [facility] Height 2017-12-19 15:25:00 66 [in_us] [facility] Weight 2017-12-19 15:25:00 226 [lb_av] [facility] Body Mass Index Calculated 2017-12-19 15:25:00 36.48 kg/m2 [facility] BP Systolic 2017-11-21 11:28:00 122 mm[Hg] Location: LUE; Position: Sitting [facility] BP Diastolic 2017-11-21 11:28:00 80 mm[Hg] Location: LUE; Position: Sitting [facility] Height 2017-11-21 11:28:00 66 [in_us] [facility] Weight 2017-11-21 11:28:00 219 [lb_av] [facility] Body Mass Index Calculated 2017-11-21 11:28:00 35.35 kg/m2 [facility] BP Systolic 2017-10-24 15:25:00 114 mm[Hg] Location: LUE; Position: Sitting [facility] BP Diastolic 2017-10-24 15:25:00 70 mm[Hg] Location: LUE; Position: Sitting [facility] Height 2017-10-24 15:25:00 66 [in_us] [facility] Weight 2017-10-24 15:25:00 214 [lb_av] [facility] Body Mass Index Calculated 2017-10-24 15:25:00 34.54 kg/m2 [facility] Temperature 2017-10-24 15:25:00 97.8 [degF] Method: Oral [facility] Procedures Procedure Date / Time Performed Performing Clinician Source EXTERNAL PROVIDER RECORDS 2022-09-11 05:01:00 Do ctor Unassigned, [place] [facility] CONSENT FOR CONTRACEPTION 2022-08-30 05:01:00 Do ctor Unassigned, [place] [facility] POCT TEST 2022-08-30 00:00:00 Adum, Claudine Walker [facility] CBC WITH DIFF 2022-08-01 09:28:00 Adum, Claudine Kebede [facility] CENTRAL NEURAXIAL BLOCK 2022-07-31 15:43:00 Baldemar Burks [facility] CBC WITH DIFF 2022-07-31 09:49:00 Adum, Claudine Kebede [facility] HEPATITIS B SURFACE ANTIGEN 2022-07-31 09:49:00 Adum, Claudine Walker [facility] HB ABO GROUPING 2022-07-31 09:49:00 [facility] FLORECITA RIBERA - RPR 2022-07-31 09:49:00 Adum, Marli Walker [facility] HIV 1/2 AG-AB WITH REFLEX 2022-07-31 09:49:00 Adum, Marli Walker [facility] HOSPITAL ADMISSION 2022-07-31 05:01:00 Doctor Un assigned, [place] [facility] NOTICE OF PRIVACY PRACTICES 2022-07-24 21:15:43 Doctor Unassigned, [place] [facility] CONSENT/REFUSAL FOR DIAGNOSIS AND TREATMENT 2022-07-24 21:14:10 Doctor Unassigned, [place] [facility] ASSIGNMENT OF BENEFITS 2022-07-24 21:13:52 Docto r Unassigned, [place] [facility] [facility] DISABILITY/FMLA 2022-07-24 05:01:00 Doctor Unass igned, [place] [facility] POCT URINALYSIS W/O SPECIFIC GRAVITY 2022-07-24 00:00:00 Adum, Claudine Walker [facility] POCT URINALYSIS W/O SPECIFIC GRAVITY 2022-07-13 00:00:00 Adum, Claudine Walker [facility] >14 WEEKS US LIMITED 2022-07-06 15:42:23 Adum, Claudine Walker [facility] DSU PRE-OP 2022-07-06 05:01:00 Doctor Unass igned, [place] [facility] POCT URINALYSIS W/O SPECIFIC GRAVITY 2022-07-06 00:00:00 Adum, Claudine Walker [facility] REFERRAL- REQUEST/RESPONSE 2022-06-26 05:01:00 Delta degroot Unassigned, [place] [facility] URINALYSIS 2022-01-16 14:01:00 Reyna Bar [facility] CONSENT/REFUSAL FOR DIAGNOSIS AND TREATMENT 2022-01-16 13:48:04 Doctor Unassigned, [place] [facility] US FIRST TRIMESTER LESS THAN 14 WEEKS WITH TRANSVAGINAL 2022-01-03 16:31:16 Requisition, Paper [facility] PATIENT FINANCIAL POLICY 2022-01-03 15:36:19 Doctor Unassigned, [place] [facility] NO SHOW OR MISSED APPOINTMENT POLICY ACKNOWLEDGEMENT 2022-01-03 15:35:58 Doctor Unassigned, [place] [facility] ASSIGNMENT OF BENEFITS 2022-01-03 15:35:33 Docto r Unassigned, [place] [facility] CONSENT/REFUSAL FOR DIAGNOSIS AND TREATMENT 2022-01-03 15:35:15 Doctor Unassigned, [place] [facility] [] GC/CT by Amp Det (APTIMA) 2019-03-18 00:00:00 [facility] - GC/Chlamydia 2019-03-18 00:00:00 [facility] [[facility]] CULTURE, URINE, ROUTINE 2018-12-04 00:00:00 [facility] - PAP 2018-07-24 00:00:00 [facility]] RPR 2018-07-24 00:00:00 [facility] [[facility]] HIV AB, HIV 1/2, EIA, WITH REFLEXES 2018-07-24 00:00:00 [facility] [QH] HEPATITIS B SURFACE ANTIGEN W/REFL CONFIRM 2018-07-24 00:00:00 [facility] [[facility]] HEPATITIS C ANTIBODY 2018-07-24 00:00:00 [facility] [QH] STREPTOCOCCUS, GROUP B CULTURE (Genital Strep Screen) 2018-04-03 00:00:00 [facility] [[facility]] RPR 2018-04-03 00:00:00 [facility]] CBC (INCLUDES DIFF/PLT) 2018-04-03 00:00:00 [facility] [QH] HIV AB, HIV 1/2, EIA, WITH REFLEXES 2018-04-03 00:00:00 [facility] [QH] GLUCOSE, GESTATIONAL SCREEN (50G)-130 CUTOFF 2018-01-14 00:00:00 [facility] [[facility]] CBC (INCLUDES DIFF/PLT) 2018-01-14 00:00:00 [facility] [H] Alpha Fetoprotein (Only) Maternal Screen 2017-11-21 00:00:00 [facility] [H] Obstetrics Panel (includes CBCw/Diff,RPR, HbsAg,RubIgG,Type and Screen) 2017-10-24 00:00:00 [facility] [QH] HIV AB, HIV 1/2, EIA, WITH REFLEXES 2017-10-24 00:00:00 [facility] [[facility]] CULTURE, URINE, ROUTINE 2017-10-24 00:00:00 [facility] [[facility]] URINALYSIS, COMPLETE 2017-10-24 00:00:00 [facility] [H] Hemoglobin Electrophoresis and Interpretation 2017-10-24 00:00:00 [facility] [QH] RBBVLTB-2-AEPCOWLWM DEHYDROGENASE, QUANT. 2017-10-24 00:00:00 [facility] [[facility]] BV/ VAGINITIS PANEL DNA PROBE AFFIRM 2017-10-24 00:00:00 [facility] [LH] GC/CT by Amp Det (APTIMA) 2017-10-24 00:00:00 [facility] Of [facility] Encounters Start Date/Time End Date/Time Encounter Type Admission Type Attending Clinicians Care Facility Care Department Encounter ID Source 2022-09-28 15:45:00 2022-09-28 16:29:42 Outpatient R KJ [facility] [id number] [facility] 2022-09-28 15:45:00 2022-09-28 16:29:42 [facility] 1.2.840.114 350.1.13.10 4.2.7.2.686 [id number] [facility] 2022-09-11 00:00:00 2022-09-11 00:00:00 Orders Only Doctor Unassigned, [place] [facility] 1.2.840.114 350.1.13.10 4.2.7.2.686 [id number] [id number] [facility] 2022-08-30 16:00:00 2022-08-30 16:41:14 Outpatient R ADPRESTON [facility] [id number] [facility] 2022-08-30 16:00:00 2022-08-30 16:41:14 [facility] 1.2.840.114 350.1.13.10 4.2.7.2.686 [id number] [facility] 2022-08-30 00:00:00 2022-08-30 00:00:00 Orders Only Doctor Unassigned, [place] [facility] 1.2840.114 350.1.13.10 4.2.7.2.686 [id number] [facility] 2022-07-31 03:53:00 2022-08-01 16:10:00 Inpatient P ADPRESTON CLAUDINE [facility] ELI [id number] [facility] 2022-07-31 03:53:00 2022-08-01 16:10:00 Hospital Encounter Adum, Claudine Walker [facility] 1.2840.114 350.1.13.10 4.2.7.2.686 [id number] [facility] 2022-07-31 10:43:00 2022-07-31 15:38:00 Anesthesia Event Baldemar Burks Chelsea Altinger [facility] 1.2840.114 350.1.13.10 4.2.7.2.686 [id number] [facility] 2022-07-31 00:00:00 2022-07-31 00:00:00 Orders Only Doctor Unassigned, [place] [facility] 1.20.114 350.1.13.10 4.2.7.2.686 [id number] [id number] [facility] 2022-07-24 15:45:00 2022-07-24 16:01:33 Outpatient R ADUM, [facility] [id number] [facility] 2022-07-24 15:45:00 2022-07-24 16:01:33 Routine Visit Ad, Claudine [facility] 1.2840.114 350.1.13.10 4.2.7.2.686 [id number] [facility] 2022-07-24 00:00:00 2022-07-24 00:00:00 Orders Only Doctor Unassigned, [place] [facility] 1.2.840.114 350.1.13.10 4.2.7.2.686 [id number] [id number] [facility] 2022-07-17 00:00:00 2022-07-17 00:00:00 Telephone Alejandro Huddleston [facility] 1.2.840.114 350.1.13.10 4.2.7.2.686 [id number] [facility] 2022-07-13 13:15:00 2022-07-13 13:30:00 Accreditation Manager Visit 2, Adc Lab Adum, Claudine Walker [facility] 1.2.840.114 350.1.13.10 4.2.7.2.686 [id number] [facility] 2022-07-13 10:45:00 2022-07-13 11:06:07 Routine Visit Kj Claudine Walker [facility] 1.2.840.114 350.1.13.10 4.2.7.2.686 [id number] [facility] 2022-07-13 10:45:00 2022-07-13 11:06:07 Outpatient R ADPRESTON CLAUDINE [facility] [id number] [facility] 2022-07-13 00:00:00 2022-07-13 00:00:00 Telephone DaleClaudine packer [facility] 1.2.840.114 350.1.13.10 4.2.7.2.686 [id number] [facility] 2022-07-11 10:00:00 2022-07-11 10:00:00 Outpatient R ADPRESTON CLAUDINE [facility] [id number] [facility] 2022-07-06 11:45:00 2022-07-06 12:00:00 Accreditation Manager Visit 2, Adc Lab Adum Claudine L [facility] 1.2.840.114 350.1.13.10 4.2.7.2.686 [id number] [facility] 2022-07-06 09:30:00 2022-07-06 10:44:15 Outpatient R CLAUDINE UNDERWOOD [facility] [id number] [facility] 2022-07-06 09:30:00 2022-07-06 10:44:15 Initial Visit Claudine Underwood [facility] 1.2.840.114 350.1.13.10 4.2.7.2.686 [id number] [facility] 2022-07-06 00:00:00 2022-07-06 00:00:00 Orders Only Doctor Unassigned, [place] [facility] 1.2.840.114 350.1.13.10 4.2.7.2.686 [id number] [id number] [facility] 2022-06-26 00:00:00 2022-06-26 00:00:00 Orders Only Doctor Unassigned, [place] [facility] 1.2.840.114 350.1.13.10 4.2.7.2.686 [id number] [facility] 2022-06-25 17:45:43 2022-06-25 17:45:43 Outpatient SFA SFA [id number] Isaac Can Onur 2022-06-13 10:43:11 2022-06-13 10:43:11 Outpatient SFA SFA [id number] Isaac Can Onur 2022-05-22 09:32:40 2022-05-22 09:32:40 Outpatient SFA SFA [id number] Isaac Can Onur 2022-05-16 13:03:53 2022-05-16 13:03:53 Outpatient SFA SFA [id number] Isaac Can Onur 2022-04-24 17:33:23 2022-04-24 17:33:23 Outpatient SFA SFA [id number] Isaac Mohr 2022-02-28 09:48:50 2022-02-28 23:59:00 Hospital Encounter Radiology [facility] 1.2.840.114 350.1.13.10 4.2.7.2.686 [id number] [facility] 2022-02-28 00:00:00 2022-02-28 23:59:00 Outpatient R RADIOLOGY [facility] [id number] [facility] 2022-01-16 07:52:00 2022-01-16 08:49:00 Emergency X REYNA BAR [facility] ERT [id number] [facility] 2022-01-16 07:52:00 2022-01-16 08:49:00 Emergency Reyna Bar Lee [facility] 1.2.840.114 350.1.13.10 4.2.7.2.686 [id number] [facility] 2022-01-03 09:38:07 2022-01-03 23:59:00 Outpatient R RADIOLOGY [facility] [id number] [facility] 2022-01-03 09:38:07 2022-01-03 23:59:00 Hospital Encounter Radiology [facility] 1.2.840.114 350.1.13.10 4.2.7.2.686 [id number] [facility] 2019 05:31:00 2019 06:13:00 Emergency E VAHID GERBER [facility] [id number] [facility] 2019-03-17 16:00:00 2019-03-17 16:00:00 Appointgiovanna swanson; ROXY LOWE M.D. CROSS, TAMIKA, M.D. [facility] [id number] [facility] 2019-02-24 08:30:00 2019-02-24 08:30:00 AppointROXY Cast M.D. CROSS, TAMIKA, M.D. [facility] [id number] [facility] 2018-12-04 11:30:00 2018-12-04 11:30:00 Appointmen t; ROXY LOWE M.D. CROSS, TAMIKA, M.D. [facility] [id number] [facility] 2018-07-24 10:15:00 2018-07-24 10:15:00 Appointmen t; ROXY LOWE M.D. CROSS, TAMIKA, M.D. [facility] [id number] [facility] 2018-05-22 14:15:00 2018-05-22 14:15:00 Appointmen t; ROXY LOWE M.D. CROSS, TAMIKA, M.D. [facility] [id number] [facility] 2018-04-17 11:30:00 2018-04-17 11:30:00 Appointmen t; ROXY LOWE M.D. CROSS, TAMIKA, M.D. [facility] [id number] [facility] 2018-04-03 14:00:00 2018-04-03 14:00:00 Appointmen t; ROXY LOWE M.D. CROSS, TAMIKA, M.D. [facility] [id number] [facility] 2018-03-20 13:30:00 2018-03-20 13:30:00 Appointmen t; ROXY LOWE M.D. CROSS, TAMIKA, M.D. [facility] [id number] [facility] 2018-03-06 10:45:00 2018-03-06 10:45:00 Appointmen t; ROXY LOWE M.D. CROSS, TAMIKA, M.D. [facility] [id number] [facility] 2018-02-20 13:45:00 2018-02-20 13:45:00 Appointmen t; ROXY LOWE M.D. CROSS, TAMIKA, M.D. [facility] [id number] [facility] 2018-01-28 10:45:00 2018-01-28 10:45:00 Appointmen t; ROXY LOWE M.D. CROSS, TAMIKA M.D. [facility] [id number] [facility] 2018-01-14 10:45:00 2018-01-14 10:45:00 Appointmen t; ROXY LOWE M.D. CROSS, TAMIKA, M.D. [facility] [id number] [facility] 2017-12-20 10:45:00 2017-12-20 10:45:00 Appointmen t; WOMENS, ROOM-1 WOMENS, ROOM-1 [facility] [id number] [facility] 2017-12-19 15:15:00 2017-12-19 15:15:00 Appointmen t; ROXY LOWE M.D. CROSS, TAMIKA, M.D. [facility] [id number] [facility] 2017-11-21 10:45:00 2017-11-21 10:45:00 Appointmen t; ROXY LOWE M.D. CROSS, TAMIKA, M.D. [facility] [id number] [facility] 2017-11-01 14:00:00 2017-11-01 14:00:00 Appointmen t; WOMENS, ROOM-1 WOMENS, ROOM-1 [facility] [id number] [facility] 2017-11-01 13:00:00 2017-11-01 13:00:00 Appointmen t; WOMENS, COUNSELING WOMENS, COUNSELING [facility] [id number] [facility] 2017-10-24 15:00:00 2017-10-24 15:00:00 Appointmen t; ROXY LOWE M.D. CROSS, TAMIKA, M.D. [facility] [id number] [facility] Results Test Description Test Time Test Comments Results Result Co mments Source [facility] with [id number] 12:07:54* Test Item Value Reference Range Interpretation Comme nts WBC (test code = 6690-2) 11.38 See_Comment H [Automated messa ge] The system which generated this result transmitted reference range: 4.30 - 11.10 10*3/?L. The reference range was not used to interpret this result as normal/abnormal. RBC (test code = 789-8) 3.34 See_Comment L [Automated messa ge] The system which generated this result transmitted reference range: 3.93 - 5.25 10*6/?L. The reference range was not used to interpret this result as normal/abnormal. HGB (test code = 718-7) 9.5 g/dL 11.6-15.0 L HCT (test code = 4544-3) 29.7 % 35.7-45.2 L MCV (test code = 787-2) 88.9 fL 80.6-95.5 MCH (test code = 785-6) 28.4 pg 25.9-32.8 MCHC (test code = 786-4) 32.0 g/dL 31.6-35.1 RDW-SD (test code = 37432-1) 44.3 fL 39.0-49.9 RDW-CV (test code = 788-0) 13.8 % 12.0-15.5 PLT (test code = 777-3) 261 See_Comment [Automated messa ge] The system which generated this result transmitted reference range: 166 - 358 10*3/?L. The reference range was not used to interpret this result as normal/abnormal. MPV (test code = 40962-3) 12.1 fL 9.5-12.9 IPF % (test code = 5288991185) 8.3 % 1.3-7.7 H Platelet count measured by fluorescence method. NRBC/100 WBC (test code = 9881175441) 0.0 See_Comment [Automated healthfinch ssage] The system which generated this result transmitted reference range: 0.0 - 10.0 /100 WBCs. The reference range was not used to interpret this result as normal/abnormal. NRBC x10^3 (test code = 2386424659) See_Comment [Automated messa ge] The system which generated this result transmitted reference range: 10*3/?L. The reference range was not used to interpret this result as normal/abnormal. GRAN MAT (NEUT) % (test code = 770-8) 65.7 % IMM GRAN % (test code = 1443943087) 0.40 % LYMPH % (test code = 736-9) 24.6 % MONO % (test code = 5905-5) 6.9 % EOS % (test code = 713-8) 1.8 % BASO % (test code = 706-2) 0.6 % GRAN MAT x10^3(ANC) (test code = 3353878042) 7.46 10*3/uL 1.88-7.09 H IMM GRAN x10^3 (test code = 4263242535) 0.05 10*3/uL 0.00-0.06 LYMPH x10^3 (test code = 731-0) 2.80 10*3/uL 1.32-3.29 MONO x10^3 (test code = 742-7) 0.79 10*3/uL 0.33-0.92 EOS x10^3 (test code = 711-2) 0.21 10*3/uL 0.03-0.39 BASO x10^3 (test code = 704-7) 0.07 10*3/uL 0.01-0.07 PLT ESTIMATE (test code = 9317-9) Normal Normal Lab Interpretation (test code = 36530-0) [facility]normal [facility] [id number] 10:10:00 * Test Item Value Reference Range Interpretation Comme nts ABO & RH (test code = 20) AB Positive IAT (test code = 1185) Negative [facility] W/O SPECIFIC [id number] 20:47:00* Test Item Value Reference Range Interpretation Comme nts POCT PH U (test code = 3254) n/a 5-8 POCT U LEUK EST (test code = 3263) n/a Negative - Negative POCT U NIT (test code = 3262) n/a Negative - Negati ve POCT U PROT (test code = 3259) Negative Negative - Negat preethi POCT U GLU (test code = 3256) Negative Negative - Negati ve POCT U KETONE (test code = 3258) n/a Negative - Neg ative POCT U BLD (test code = 3257) n/a Negative - Negati ve [facility] W/O SPECIFIC [id number] 15:41:00* Test Item Value Reference Range Interpretation Comme nts POCT PH U (test code = 3254) n/a 5-8 POCT U LEUK EST (test code = 3263) n/a Negative - Negative POCT U NIT (test code = 3262) n/a Negative - Negati ve POCT U PROT (test code = 3259) Negative Negative - Negat preethi POCT U GLU (test code = 3256) Normal Negative - Negati ve POCT U KETONE (test code = 3258) n/a Negative - Neg ative POCT U BLD (test code = 3257) n/a Negative - Negati ve [facility] W/O SPECIFIC [id number] 14:26:00* Test Item Value Reference Range Interpretation Comme nts POCT PH U (test code = 3254) n/a 5-8 POCT U LEUK EST (test code = 3263) n/a Negative - Negative POCT U NIT (test code = 3262) n/a Negative - Negati ve POCT U PROT (test code = 3259) Negative Negative - Negat preethi POCT U GLU (test code = 3256) Normal Negative - Negati ve POCT U KETONE (test code = 3258) n/a Negative - Neg ative POCT U BLD (test code = 3257) n/a Negative - Negati ve [facility], [id number] 08:38:55SPECIMEN NUMBER: [id number] CULTURE, URINE SPECIMEN NUMBER: [id number] SPECIMEN COMMENT: URINE SOURCE: URINE REPORT STATUS: FINAL FINAL REPORT: 06/28/2022 10-50,000 CFU/ML UROGENITAL JACOB PRESENT NO COMMON PATHOGENS UNLESS OTHERWISE INDICATED, ALL TESTING PERFORMED AT [facility] [address] [place] [address] FLUE GAS ANALYST: CORAZON HAWLEY M.D. CLIA NUMBER [id number] [place]. [id number], [id number] 15:44:14SPECIMEN NUMBER: [id number] CULTURE, URINE SPECIMEN NUMBER: [id number] SPECIMEN COMMENT: URINE SOURCE: URINE REPORT STATUS: FINAL ISOLATE NUMBER 1: ORGANISM: 05/24/2022 >100,000 CFU/ML ENTEROCOCCUS SPECIES (GROUP D) IDENTIFICATION: 05/25/2022 ENTEROCOCCUS SPECIES (GROUP D) ISOLATE NUMBER 2: IDENTIFICATION: 05/26/2022 50- 100,000 CFU/ML YEAST ENTEROCOCCUS SP. AMPICILLIN SENSITIVE &l t;=2CIPROFLOXACIN SENSITIVE <=1LEVOFLOXACIN SENSITIVE 1NITROFURANTOIN SENSITIVE <=32TETRACYCLINE RESISTANT >8VANCOMYCIN SENSITIVE 2 NOTE: NUMBERS DISPLAYED REPRESENT MINIMUM INHIBITORY CONCENTRATION (MELA) WHICH IS EXPRESSED IN MCG/ML. CT/NG, NAAT, [id number] 17:36:42* Test Item Value Reference Range Interpretation Comme nts CHLAMYDIA, NAAT, URINE (test code = 79837) NEGATIVE NEGATIVE Testing is perfo rmed with Mary AYESHA 6800/8800 systems usingreal-time polymerase chain reaction (PCR) method. A negative result does not exclude low level infection, specimensampling error, or collection error. GONORRHEA, NAAT, URINE (test code = 06516) NEGATIVE NEGATIVE Testing is perfo rmed with Mary AYESHA 6800/8800 systems usingreal-time polymerase chain reaction (PCR) method. A negative result does not exclude low level infection, specimensampling error, or collection error. GLUCOSE, 1 HR, GESTATIONAL SCREEN, 50 GM [id number] 08:38:57* Test Item Value Reference Range Interpretation Comme nts GLUCOSE 1 HR POST 50 GM (test code = 2005) 78 MG/DL <140 [facility] has impo rtant pathology staff changes effective 04/18/2022. New pathology staff will provide uninterrupted, excellent patient care and clinical consultation. See URL: [email or web address]. UNLESS OTHERWISE INDICATED, ALL TESTING PERFORMED AT [facility] [address] [place] [address] FLUE GAS ANALYST: CORAZON HAWLEY M.D. CLIA NUMBER [id number] [place]. [id number] DRUG ABUSE SCREEN 10 REFLEX [id number] 06:34:33* Test Item Value Reference Range Interpretation Comme nts AMPHETAMINES (test code = 3201) NEGATIVE NEGATIVE BARBITURATES (test code = 3202) NEGATIVE NEGATIVE BENZODIAZEPINES (test code = 3203) NEGATIVE NEGATIVE CANNABINOIDS (test code = 3204) NEGATIVE NEGATIVE COCAINE METABOLITE (test code = 3205) NEGATIVE NEGATIVE OPIATES (test code = 3209) NEGATIVE NEGATIVE OXYCODONE (test code = 16479) NEGATIVE NEGATIVE PHENCYCLIDINE (test code = 3210) NEGATIVE NEGATIVE METHADONE (test code = 3207) NEGATIVE NEGATIVE BUPRENORPHINE (test code = 21581) NEGATIVE NEGATIVE SOURCE (test code = 467504) URINE SEE BELOW FO R THRESHOLDS AND IMPORTANT METHOD NOTES ANALYTE SCREENING CUTOFF CONFIRMATORY CUTOFF AMPHETAMINES 500 NG/ML 100 NG/MLBARBITURATES 200 NG/ML 100 NG/MLBENZODIAZEPINES 200 NG/ML 100 NG/MLCANNABINOIDS (THC) 20 NG/ML 15 NG/MLCOCAINE METABOLITES 150 NG/ML 100 NG/MLOPIATE METABOLITES 300 NG/ML 100 NG/MLOXYCODONE 100 NG/ML 100 NG/MLPHENCYCLIDINE (PCP) 25 NG/ML 25 NG/MLMETHADONE 300 NG/ML 100 NG/MLBUPRENORPHINE 5 NG/ML 5 NG/ML NOTE: Screening methodology is qualitative Enzyme Immunoassay.The screening method may be less sensitive for certain medicationsincluding clonazepam and lorazepam in the benzodiazepine assay andtramadol or fentanyl in the opiate assay, amongst others. Patientcompliance, hydration status, timing and dose of medications, drugabsorption and specimen quality may affect screening assay.For clinical discrepancies, consider directed testing for specificcompounds or contact the laboratory within specimen stability [place] for confirmatory testing. This test is specified for medicalpurposes only. It is not valid for forensic use. HIV 1/2 4TH GEN, RFLX [id number] 04:43:41* Test Item Value Reference Range Interpretation Comme nts HIV 1/2 4TH GEN, RFLX CONF ( test code = 3514) NON-REACTIVE NON-REACTIVE HEPATITIS PANEL, [id number] 04:43:41* Test Item Value Reference Range Interpretation Comme nts HEPATITIS A IgM (test code = 20460) NON-REACTIVE NON-REACTIVE HEPATITIS B CORE IgM (test code = 4644) NON-REACTIVE NON-REACTIVE HEPATITIS B SURF AG (test code = 2739) NON-REACTIVE NON-REACTIVE HEPATITIS C ANTIBODY (test code = 4675) NON-REACTIVE NON-REACTIVE INTERPRETATION HEPATITIS A: (test code = 2552) (NOTE) Hepatitis A serology shows no evidence of acute hepatitis A. INTERPRETATION HEPATITIS B: (test code = 67935) (NOTE) Hepatitis B serology shows no evidence of acute hepatitis B andno indication of exposure to hepatitis B virus in the previous imer eight months. INTERPRETATION HEPATITIS C: (test code = 24316) (NOTE) Hepatitis C serology shows no evidence of exposure to hepatitisC virus at this time. It can take up to 12 months after exposure tothe hepatitis C virus for antibodies to become detectable in the blood in certain patients. CBC W/AUTO DIFF WITH [id number] 04:26:40* Test Item Value Reference Range Interpretation Comme nts WBC (test code = 1001) 11.4 K/UL 3.5-11.0 H RBC (test code = 1002) 3.69 M/UL 3.80-5.40 L HEMOGLOBIN (test code = 1003) 10.8 G/DL 11.5-15.5 L HEMATOCRIT (test code = 1004) 32.1 % 34.0-45.0 L MCV (test code = 1005) 87.0 fL 80.0-99.0 MCH (test code = 1006) 29.3 PG 25.0-33.0 MCHC (test code = 1007) 33.6 G/DL 31.0-36.0 RDW (test code = 1038) 11.7 % 11.5-15.0 NEUTROPHILS (test code = 1008) 66.1 % LYMPHOCYTES (test code = 1010) 24.3 % MONOCYTES (test code = 1011) 6.2 % EOSINOPHILS (test code = 1012) 2.0 % BASOPHILS (test code = 1013) 0.5 % IMMATURE GRANULOCYTES (test code = 1036) 0.9 % NUCLEATED RBCS (test code = 1065) 0.0 /100 WBC'S See_Comment [Automated [employer] ge] The system which generated this result transmitted reference range: 0.0. The reference range was not used to interpret this result as normal/abnormal. PLATELET COUNT (test code = 1015) 370 K/UL 130-400 ABSOLUTE NEUTROPHILS (test code = 1066) 7.52 K/UL 1.50-7.50 H ABSOLUTE LYMPHOCYTES (test code = 1067) 2.77 K/UL 1.00-4.00 ABSOLUTE MONOCYTES (test code = 1068) 0.71 K/UL 0.20-1.00 ABSOLUTE EOSINOPHILS (test code = 1040) 0.23 K/UL 0.00-0.50 ABSOLUTE BASOPHILS (test code = 1069) 0.06 K/UL 0.00-0.20 ABS IMMATURE GRANULOCYTES (test code = 1020) 0.10 K/UL 0.00-0.10 ABS NUCLEATED RBCS (test code = 12736) 0.00 K/UL 0.00-0.11 RPR REFLEX TO T. PALLIDUM - [id number] 03:34:33* Test Item Value Reference Range Interpretation Comme nts RPR (test code = 09661) NON-REACTIVE NON-REACTIVE RPR TITER (test code = 3500) NOT INDIC. TITER NOT INDIC. CT/NG, NAAT, [id number] 21:32:55* Test Item Value Reference Range Interpretation Comme nts CHLAMYDIA, NAAT, URINE (test code = 74335) NEGATIVE NEGATIVE Testing is perfo rmed with Mary AYESHA 6800/8800 systems usingreal-time polymerase chain reaction (PCR) method. A negative result does not exclude low level infection, specimensampling error, or collection error. GONORRHEA, NAAT, URINE (test code = 22230) NEGATIVE NEGATIVE Testing is perfo rmed with Mary AYESHA 6800/8800 systems usingreal-time polymerase chain reaction (PCR) method. A negative result does not exclude low level infection, specimensampling error, or collection error. [facility] has important pathology staff changes effective 04/18/2022. New pathology staff will provide uninterrupted, excellent patient care and clinical consultation. See URL: [email or web address]. UNLESS OTHERWISE INDICATED, ALL TESTING PERFORMED AT [facility] [address] [place] [address] FLUE GAS ANALYST: CORAZON HAWLEY M.D. CLIA NUMBER [id number] [place]. [id number] CBC W/AUTO DIFF WITH [id number] 06:50:50* Test Item Value Reference Range Interpretation Comme nts WBC (test code = 1001) 10.4 K/UL 3.5-11.0 RBC (test code = 1002) 3.44 M/UL 3.80-5.40 L HEMOGLOBIN (test code = 1003) 10.3 G/DL 11.5-15.5 L HEMATOCRIT (test code = 1004) 30.7 % 34.0-45.0 L MCV (test code = 1005) 89.2 fL 80.0-99.0 MCH (test code = 1006) 29.9 PG 25.0-33.0 MCHC (test code = 1007) 33.6 G/DL 31.0-36.0 RDW (test code = 1038) 11.9 % 11.5-15.0 NEUTROPHILS (test code = 1008) 66.3 % LYMPHOCYTES (test code = 1010) 23.6 % MONOCYTES (test code = 1011) 7.0 % EOSINOPHILS (test code = 1012) 1.9 % BASOPHILS (test code = 1013) 0.4 % IMMATURE GRANULOCYTES (test code = 1036) 0.8 % NUCLEATED RBCS (test code = 1065) 0.0 /100 WBC'S See_Comment [Automated messa ge] The system which generated this result transmitted reference range: 0.0. The reference range was not used to interpret this result as normal/abnormal. PLATELET COUNT (test code = 1015) 348 K/UL 130-400 ABSOLUTE NEUTROPHILS (test code = 1066) 6.92 K/UL 1.50-7.50 ABSOLUTE LYMPHOCYTES (test code = 1067) 2.46 K/UL 1.00-4.00 ABSOLUTE MONOCYTES (test code = 1068) 0.73 K/UL 0.20-1.00 ABSOLUTE EOSINOPHILS (test code = 1040) 0.20 K/UL 0.00-0.50 ABSOLUTE BASOPHILS (test code = 1069) 0.04 K/UL 0.00-0.20 ABS IMMATURE GRANULOCYTES (test code = 1020) 0.08 K/UL 0.00-0.10 ABS NUCLEATED RBCS (test code = 63960) 0.00 K/UL 0.00-0.11 DRUG ABUSE SCREEN 10 REFLEX [id number] 06:23:11* Test Item Value Reference Range Interpretation Comme nts AMPHETAMINES (test code = 3201) NEGATIVE NEGATIVE BARBITURATES (test code = 3202) NEGATIVE NEGATIVE BENZODIAZEPINES (test code = 3203) NEGATIVE NEGATIVE CANNABINOIDS (test code = 3204) NEGATIVE NEGATIVE COCAINE METABOLITE (test code = 3205) NEGATIVE NEGATIVE OPIATES (test code = 3209) NEGATIVE NEGATIVE OXYCODONE (test code = 20486) NEGATIVE NEGATIVE PHENCYCLIDINE (test code = 3210) NEGATIVE NEGATIVE METHADONE (test code = 3207) NEGATIVE NEGATIVE BUPRENORPHINE (test code = 22223) NEGATIVE NEGATIVE SOURCE (test code = 218764) URINE SEE BELOW FO R THRESHOLDS AND IMPORTANT METHOD NOTES ANALYTE SCREENING CUTOFF CONFIRMATORY CUTOFF AMPHETAMINES 500 NG/ML 100 NG/MLBARBITURATES 200 NG/ML 100 NG/MLBENZODIAZEPINES 200 NG/ML 100 NG/MLCANNABINOIDS (THC) 20 NG/ML 15 NG/MLCOCAINE METABOLITES 150 NG/ML 100 NG/MLOPIATE METABOLITES 300 NG/ML 100 NG/MLOXYCODONE 100 NG/ML 100 NG/MLPHENCYCLIDINE (PCP) 25 NG/ML 25 NG/MLMETHADONE 300 NG/ML 100 NG/MLBUPRENORPHINE 5 NG/ML 5 NG/ML NOTE: Screening methodology is qualitative Enzyme Immunoassay.The screening method may be less sensitive for certain medicationsincluding clonazepam and lorazepam in the benzodiazepine assay andtramadol or fentanyl in the opiate assay, amongst others. Patientcompliance, hydration status, timing and dose of medications, drugabsorption and specimen quality may affect screening assay.For clinical discrepancies, consider directed testing for specificcompounds or contact the laboratory within specimen stability toforward for confirmatory testing. This test is specified for medicalpurposes only. It is not valid for forensic use. HIV 1/2 4TH GEN, RFLX [id number] 06:14:34* Test Item Value Reference Range Interpretation Comme nts HIV 1/2 4TH GEN, RFLX CONF ( test code = 3514) NON-REACTIVE NON-REACTIVE HEPATITIS PANEL, [id number] 06:14:34* Test Item Value Reference Range Interpretation Comme nts HEPATITIS A IgM (test code = 41028) NON-REACTIVE NON-REACTIVE HEPATITIS B CORE IgM (test code = 4644) NON-REACTIVE NON-REACTIVE HEPATITIS B SURF AG (test code = 2739) NON-REACTIVE NON-REACTIVE HEPATITIS C ANTIBODY (test code = 4675) NON-REACTIVE NON-REACTIVE INTERPRETATION HEPATITIS A: (test code = 2552) (NOTE) Hepatitis A serology shows no evidence of acute hepatitis A. INTERPRETATION HEPATITIS B: (test code = 06103) (NOTE) Hepatitis B serology shows no evidence of acute hepatitis B andno indication of exposure to hepatitis B virus in the previous imer eight months. INTERPRETATION HEPATITIS C: (test code = 59702) (NOTE) Hepatitis C serology shows no evidence of exposure to hepatitisC virus at this time. It can take up to 12 months after exposure tothe hepatitis C virus for antibodies to become detectable in the blood in certain patients. COMPREHENSIVE METABOLIC [id number] 06:14:00* Test Item Value Reference Range Interpretation Comme nts GLUCOSE (test code = 2217) 90 MG/DL 70-99 BUN (test code = 2207) 7 MG/DL 6-20 CREATININE (test code = 2214) 0.60 MG/DL 0.60-1.30 eGFR (2020 CKD-EPI) (test code = 68291) 125 ML/MIN/1.73 >60 CALC BUN/CREAT (test code = 2235) 12 RATIO 6-28 SODIUM (test code = 2231) 141 MEQ/L 133-146 POTASSIUM (test code = 2228) 4.2 MEQ/L 3.5-5.4 CHLORIDE (test code = 2215) 105 MEQ/L 95-107 CARBON DIOXIDE (test code = 2206) 19 MEQ/L 19-31 CALCIUM (test code = 2209) 8.9 MG/DL 8.5-10.5 PROTEIN, TOTAL (test code = 2228) 6.7 G/DL 6.1-8.3 ALBUMIN (test code = 1) 3.6 G/DL 3.5-5.2 CALC GLOBULIN (test code = 2240) 3.1 G/DL 1.9-3.7 CALC A/G RATIO (test code = 2234) 1.2 RATIO 1.0-2.6 BILIRUBIN, TOTAL (test code = 2206) 0.3 MG/DL See_Comment [Automated me ssage] The system which generated this result transmitted reference range: <=1.2. The reference range was not used to interpret this result as normal/abnormal. ALKALINE PHOSPHATASE (test code = 2204) 92 U/L 40-112 AST (test code = 2218) 15 U/L 9-40 ALT (test code = 2219) 17 U/L 5-40 RPR REFLEX TO T. PALLIDUM - [id number] 05:22:59* Test Item Value Reference Range Interpretation Comme nts RPR (test code = 21659) NON-REACTIVE NON-REACTIVE RPR TITER (test code = 3500) NOT INDIC. TITER NOT INDIC. CULTURE, [id number] 10:20:52SPECIMEN NUMBER: [id number] CULTURE, URINE SPECIMEN NUMBER: [id number] SOURCE: URINE REPORT STATUS: FINAL FINAL REPORT: 04/27/2022 >100,000 CFU/ML UROGENITAL JACOB PRESENT NO COMMON PATHOGENS [facility] has important pathology staff changes effective 04/18/2022. New pathology staff will provide uninterrupted, excellent patient care and clinical consultation. See URL: [email or web address]. UNLESS OTHERWISE INDICATED, ALL TESTING PERFORMED AT [facility] [address] [place] [address] FLUE GAS ANALYST: CORAZON HAWELY M.D. CLIA NUMBER [id number] [place]. [id number], [id number] 09:43:46SPECIMEN NUMBER: [id number] CULTURE, URINE SPECIMEN NUMBER: [id number] SPECIMEN COMMENT: URINE SOURCE: URINE REPORT STATUS: FINAL ISOLATE NUMBER 1: IDENTIFICATION: 03/24/2022 10-50,000 CFU/ML YEAST ADDITIONAL OBSERVATIONS: 03/24/2022 10-50,000 CFU/ML UROGENITAL JACOB PRESENT NO COMMON PATHOGENS [facility] has important pathology staff changes effective 04/18/2022. New pathology staff will provide uninterrupted, excellent patient care and clinical consultation. See URL: [email or web address]. UNLESS OTHERWISE INDICATED, ALL TESTING PERFORMED AT [facility] [address] [place] [address] CLIA: [id number], CAP: [id number], [id number] 11:17:30SPECIMEN NUMBER: [id number] CULTURE, URINE SPECIMEN NUMBER: [id number] SPECIMEN COMMENT: URINE SOURCE: URINE REPORT STATUS: FINAL ISOLATE NUMBER 1: ORGANISM: 02/24/2022 >100,000 CFU/ML ENTEROCOCCUS SPECIES (GROUP D) IDENTIFICATION: 02/25/2022 ENTEROCOCCUS SPECIES (GROUP D) ISOLATE NUMBER 2: IDENTIFICATION: 02/26/2022 <10,000 CFU/ML YEAST ENTEROCOCCUS SP. AMPICILLIN SENSITIVE <=2CIPROFLOXACIN SENSITIVE <=1LEVOFLOXACIN SENSITIVE 1NITROFURANTOIN SENSITIVE <=32TETRACYCLINE RESISTANT >8VANCOMYCIN SENSITIVE 4 NOTE: NUMBERS DISPLAYED REPRESENT MINIMUM INHIBITORY CONCENTRATION (MELA) WHICH IS EXPRESSED IN MCG/ML. UNLESS OTHERWISE INDICATED, ALL [facility]ING [facility]MED [facility] [address] [place] [address] FLUE GAS ANALYST: ADAM CARDENAS M.D. CLIA NUMBER [id number] [place]. [id number]. [facility] - [id number] 00:00:00* Test Item Value Reference Range Interpretation Comme [facility] Case (test code = Case) Click ImageLink button for report. N Specimen 1 (test code = Specimen 1) Click ImageLink button for report. N [facility][O] Urine Dipstick (In Office)2018-12-04 13:38:00* Test Item Value Reference Range Interpretation Comme [facility] Glucose (test code = Glucose) negative N LEUKOCYTES (test code = LEUKOCYTES) small A NITRITE; Abnormal (test code = 77596-4) positive A UROBILINOGEN; Abnormal (test code = 08760-7) 1.0 A PROTEIN; Abnormal (test code = 66535-8) trace A pH (test code = pH) 6.0 A URINE BLOOD; Abnormal (test code = 59341-6) trace A SPECIFIC GRAVITY; Abnormal ( test code = 2965-2) 1.025 A KETONES; Normal (test code = 76589-3) negative N BILIRUBIN; Normal (test code = 10827-1) negative N COLOR URINE; Normal (test co de = 5778-6) yellow N [facility][O] Urine Test (in office)2018-12-04 11:28:00* Test Item Value Reference Range Interpretation Comme nts Test, Urine; Abnor mal (test code = 2106-3) positive A Control Line Present? (test code = Control Line Present?) Yes N Test Lot# (test code = Test Lot#) [id number] N [facility][QL] CULTURE, URINE, [id number] 00:00:01* Test Item Value Reference Range Interpretation Comme nts FINAL REPORT (test code = FINAL REPORT) <10,000 CFU/mL Skin Jacob [facility][QL] [id number] 11:14:01* Test Item Value Reference Range Interpretation Comme nts RPR (test code = 30357-3) Non-Reactive Non-Reactive [facility][Q] HEPATITIS B SURFACE ANTIGEN W/REFL [id number] 11:14:01 * Test Item Value Reference Range Interpretation Comme nts Hepatitis B Surface Antigen (test code = 5195-3) Negative Negative [facility]] HEPATITIS C [id number] 11:14:01* Test Item Value Reference Range Interpretation Comme nts Hepatitis C Antibody (test c ode = 19685-5) Negative [facility][] HIV AB, HIV 1/2, EIA, WITH [id number] 11:14:01* Test Item Value Reference Range Interpretation Comme nts HIV Ag/Ab 4th Gen (test code = 05888-7) Negative Negative HIV test results should be considered positive only when both the screening andthe confirmatory tests are positive. A negative confirmatory test in patientswith a positive screening test does not exclude HIV infection. If clincallywarranted, an HIV RNA quantitative test should be ordered. [facility]. [facility] - [id number] 00:00:00* Test Item Value Reference Range Interpretation Comme nts PAP REPORT (test code = 62431-2) See Comment [facility]] CBC (INCLUDES DIFF/PLT)2018-04-03 15:44:01* Test Item Value Reference Range Interpretation Comme nts WBC (test code = 6690-2) 9.4 {K/CMM} 3.7-10.4 RBC; Below Low Threshold (te st code = 789-8) 3.63 {M/CMM} 4.20-5.40 Hgb; Below Low Threshold (te st code = 718-7) 10.2 g/dl 12.0-16.0 Hct; Below Low Threshold (te st code = 56117-2) 32.0 % 36.0-48.0 MCV (test code = 787-2) 88.3 fL 80.0-98.0 MCH (test code = 785-6) 28.1 pg 27.0-31.0 MCHC; Below Low Threshold (t est code = 786-4) 31.8 g/dl 32.0-36.0 RDW; Above High Threshold (t est code = 788-0) 15.7 % 11.5-14.5 Platelet (test code = 78285-6) 319 {K/CMM} 133-450 Mean Platelet Volume (test c ode = 11256-0) 9.0 fL 7.4-10.4 [facility]] [id number] 15:44:01* Test Item Value Reference Range Interpretation Comme nts Segmented Neutrophils (test code = 91707-0) 72.6 % 45.0-75.0 Monocytes (test code = 84190-0) 7.3 % 2.0-12.0 Lymphocytes; Below Low Thres hold (test code = 26310-0) 18.6 % 20.0-40.0 Eosinophils (test code = 92708-5) 1.2 % 0.0-4.0 Basophils (test code = 706-2) 0.3 % 0.0-1.0 Segs-Bands # (test code = 45425-3) 6.8 {K/CMM} 1.5-8.1 Lymphocytes # (test code = 59018-5) 1.7 {K/CMM} 1.0-5.5 Monocytes # (test code = 43357-6) 0.7 {K/CMM} 0.0-0.8 Eosinophils # (test code = 52118-7) 0.1 {K/CMM} 0.0-0.5 [facility]] [id number] 15:44:01* Test Item Value Reference Range Interpretation Comme nts RPR (test code = 90648-1) Non-Reactive Non-Reactive [facility][Q] HIV AB, HIV 1/2, EIA, WITH [id number] 15:44:01* Test Item Value Reference Range Interpretation Comme nts HIV Ag/Ab 4th Gen (test code = 90961-1) Negative Negative HIV test results should be considered positive only when both the screening andthe confirmatory tests are positive. A negative confirmatory test in patientswith a positive screening test does not exclude HIV infection. If clincallywarranted, an HIV RNA quantitative test should be ordered. [facility][] STREPTOCOCCUS, GROUP B CULTURE (Genital Strep Screen) 2018-04-03 15:44:01* Test Item Value Reference Range Interpretation Comme nts FINAL REPORT (test code = FINAL REPORT) No Beta-Hemolytic Streptococci Isolated [facility][QL] CBC (INCLUDES DIFF/PLT)2018-01-16 14:52:01* Test Item Value Reference Range Interpretation Comme nts WBC; Above High Threshold (t est code = 6690-2) 12.1 {K/CMM} 3.7-10.4 RBC; Below Low Threshold (te st code = 789-8) 3.34 {M/CMM} 4.20-5.40 Hgb; Below Low Threshold (te st code = 718-7) 9.5 g/dl 12.0-16.0 Hct; Below Low Threshold (te st code = 69404-0) 29.7 % 36.0-48.0 MCV (test code = 787-2) 89.1 fL 80.0-98.0 MCH (test code = 785-6) 28.5 pg 27.0-31.0 MCHC (test code = 786-4) 32.0 g/dl 32.0-36.0 RDW (test code = 788-0) 13.8 % 11.5-14.5 Platelet (test code = 84045-4) 391 {K/CMM} 133-450 Mean Platelet Volume (test c ode = 77432-0) 9.0 fL 7.4-10.4 [facility][QL] [id number] 14:52:01* Test Item Value Reference Range Interpretation Comme nts Segmented Neutrophils (test code = 49065-1) 69.8 % 45.0-75.0 Monocytes (test code = 50452-1) 6.7 % 2.0-12.0 Lymphocytes (test code = 48100-9) 21.5 % 20.0-40.0 Eosinophils (test code = 79217-6) 1.6 % 0.0-4.0 Basophils (test code = 706-2) 0.4 % 0.0-1.0 Segs-Bands #; Above High Threshold (test code = 26786-5) 8.4 {K/CMM} 1.5-8.1 Lymphocytes # (test code = 65050-7) 2.6 {K/CMM} 1.0-5.5 Monocytes # (test code = 74413-2) 0.8 {K/CMM} 0.0-0.8 Eosinophils # (test code = 04624-4) 0.2 {K/CMM} 0.0-0.5 Basophils # (test code = 36858-2) 0.1 {K/CMM} 0.0-0.2 [facility][QH] GLUCOSE, GESTATIONAL SCREEN (50G)-130 [id number] 14:52:01* Test Item Value Reference Range Interpretation Comme nts Glucose Challenge (test code = 1504-0) 94.0 mg/dl <=140.0 [facility][H] Alpha Fetoprotein (Only) Maternal [id number] 12:33:01* Test Item Value Reference Range Interpretation Comments Results (Maternal Screen) (test code = Results (Maternal Screen)) Report Test Results (Maternal Screen) (test code = Test Results (Maternal Screen)) *Screen Negative* Gest Age on Collection Date (test code = Gest Age on Collection Date) 16.9 {WEEKS} Gest Age Base On (test code = Gest Age Base On) Ultrasound 16.9 on 11/21/2017Recalculations are not recommended when gestational datingby LMP and ultrasound are within 10 days. Maternal Age at ARIK (test code = Maternal Age at ARIK) 25.3 Maternal Race (test code = Maternal Race) Black Maternal Weight (test code = Maternal Weight) 219 {lb} Insulin-Dependen t Diabetic (test code = Insulin-Dependen t Diabetic) No Multiple Gest (test code = Multiple Gest) No Alpha Fetoprotein Maternal (test code = Alpha Fetoprotein Maternal) 24.6 ng/ml Multiple of Median AFP (test code = 44860-7) 0.76 Risk for NTD (OBS) (test code = Risk for NTD (OBS)) 69667 Maternal Screen Interp (test code = Maternal Screen Interp) Comment Interpretation: Screen NegativeThis result is screen negative for OSB. The AFP MoMcalculated is based on the gestational age provided. MS-AFPcan identify up to 80% of open neural tube defects.Closed neural tube defects and some open defects may not bedetected by this test. This test does not screen for fetalDown Syndrome or Trisomy 18. If screening for Down Syndromeor Trisomy 18 is desired, contact [facility] to discuss available options. The AmericanCollege of Obstetricians and Gynecologists recommendsamniocentesis be offered to women age 35 and older. Comment (Maternal Scrn) (test code = Comment (Maternal Scrn)) Comment Joanie Garcia, Ph.D., [facility] Technical DirectorReferences: Available Upon Request.Multiples Of Median Cutoffs For AFP ElevationsSingleton 2.5 Black 2.8IDD 2.0 Twins 4.5 Abbreviation DefinitionsIDD - Insulin Dep DiabetesOSBR - Open Spina Bifida RiskFor further inquiries contact [facility] at [phone].Performed At: [facility] [id number] [place], [place] [address]FpybezhftxKolby Hope MD Ph:[phone] Insulin Dependent? (test code = Insulin Dependent?) N Gest Ager Weeks? (test code = Gest Ager Weeks?) 16 Gest Age Days (test code = Gest Age Days) 6 Gest Age Date of Calculation (YYYYMMDD) (test code = Gest Age Date of Calculation (YYYYMMDD)) Gest Age Method of Calculation (test code = Gest Age Method of Calculation) Ultrasound Date of LMP (test code = Date of LMP) Est Due Date (test code = Est Due Date) Number of Fetuses (test code = Number of Fetuses) 1 Other Indications? (test code = Other Indications?) N Donor Egg (test code = Donor Egg) N Donor Age at Egg Retrieval (test code = Donor Age at Egg Retrieval) 0 [facility]] BV/ VAGINITIS PANEL DNA PROBE [id number] 20:16:01* Test Item Value Reference Range Interpretation Comme nts Trichomonas vaginalis DNA (t est code = 31891-2) Negative Negative Gardnerella vaginalis DNA; A bnormal (test code = 6410-5) Positive Negative A Hailey sp. DNA (test code = 71251-8) Negative Negative [facility][LH] GC/CT by Amp Det (APTIMA)2017-10-24 20:16:01* Test Item Value Reference Range Interpretation Comme nts Source APTIMA (test code = Source APTIMA) Vaginal N gonorrhea by Amp Det (APTIMA) (test code = 22540-4) Negative Negative The APTIMA assay is a target amplification nucleic acid probe test utilizingtarget capture for the qualitative detection and differentiation of ribosomalRNA from Neisseria gonorrhoeae to aid in the diagnosis of disease fromsymptomatic and asymptomatic individuals using the PANTHER System.This assay utilizes FDA cleared IVD reagents. Performance characteristics havebeen verified by the [facility] within [facility].The [facility] Laboratory is authorized under the Clinical LaboratoryImprovement Amendments of 1988 (CLIA-88) to perform high complexity testing. C trachomatis by Amp Det (APTIMA) (test code = 33763-3) Negative Negative The APTIMA assay is a target amplification nucleic acid probe test utilizingtarget capture for the qualitative detection and differentiation of ribosomalRNA from Chlamydia trachomatis to aid in the diagnosis of disease fromsymptomatic and asymptomatic individuals using the PANTHER System.This assay utilizes FDA cleared IVD reagents. Performance characteristics havebeen verified by the [facility] within [facility].The [facility] is authorized under the Clinical LaboratoryImprovement Amendments of 1988 (CLIA-88) to perform high complexity testing. C trachomatis by Amp Det (APTIMA) (test code = 12461-3) Negative Negative The APTIMA assay is a target amplification nucleic acid probe test utilizingtarget capture for the qualitative detection and differentiation of ribosomalRNA from Chlamydia trachomatis to aid in the diagnosis of disease fromsymptomatic and asymptomatic individuals using the PANTHER System.This assay utilizes FDA cleared IVD reagents. Performance characteristics havebeen verified by the [facility] within [facility].The [facility] is authorized under the Clinical LaboratoryImprovement Amendments of 1988 (CLIA-88) to perform high complexity testing. [facility][H] Obstetrics Panel (includes CBCw/Diff,RPR, HbsAg,RubIgG,Type and Screen)2017-10-24 16:30:01* Test Item Value Reference Range Interpretation Comme nts ABORH (test code = 882-1) AB POS AB Screen (test code = 890-4) Negative WBC; Above High Threshold (test code = 6690-2) 11.1 {K/CMM} 3.7-10.4 RBC; Below Low Threshold (test code = 789-8) 3.90 {M/CMM} 4.20-5.40 Hgb; Below Low Threshold (test code = 717-9) 11.3 g/dl 12.0-16.0 Hct; Below Low Threshold (test code = 17624-2) 34.4 % 36.0-48.0 MCV (test code = 787-2) 88.1 fL 80.0-98.0 MCH (test code = 46096-6) 29.1 pg 27.0-31.0 MCHC (test code = 786-4) 33.0 g/dl 32.0-36.0 RDW (test code = 788-0) 14.2 % 11.5-14.5 Platelet (test code = 777-3) 427 {K/CMM} 133-450 MPV (test code = 67987-9) 9.2 fL 7.4-10.4 Rubella IgG (test code = 57122-5) 54.9 {IU/ml} >=10.0 Reference Range: Immune >= 10 IU/mL Hep Bs Ag (test code = 5195-3) Negative Negative Segs (test code = 72909-4) 73.3 % 45.0-75.0 Monocytes # (test code = 85092-8) 0.7 {K/CMM} 0.0-0.8 Lymphocytes (test code = Lymphocytes) 18.5 % 20.0-40.0 Eosinophils (test code = Eosinophils) 1.5 % 0.0-4.0 Basophils # (test code = 23986-6) 0.0 {K/CMM} 0.0-0.2 Segs-Bands #; Above High Threshold (test code = 55106-4) 8.2 {K/CMM} 1.5-8.1 Lymphocytes # (test code = 36573-1) 2.1 {K/CMM} 1.0-5.5 Eosinophils # (test code = 10741-6) 0.2 {K/CMM} 0.0-0.5 RPR (test code = 63430-6) Non-Reactive Non-Reactive [facility]] URINALYSIS, [id number] 16:30:01* Test Item Value Reference Range Interpretation Comme nts UA Turbidity; Abnormal (test code = 93762-5) Marked Clear A UA Spec Grav (test code = 5810-7) 1.024 <=1.030 UA pH (test code = 5803-2) 6.0 5.0-8.0 UA Protein; Abnormal (test c ode = 75142-5) 30 mg/dl Negative A UA Glucose (test code = 38939-6) Negative Negative UA Ketones; Abnormal (test c ode = 27033-5) Trace Negative A UA Bili (test code = 5770-3) Negative Negative UA Blood; Abnormal (test cod e = 5794-3) Moderate Negative A UROBILINOGEN; Above High Thr eshold (test code = 71234-7) 4.0 mg/dl 0.1-1.0 UA Nitrite (test code = 5802-4) Negative Negative UA Leuk Est; Abnormal (test code = 5799-2) Moderate Negative A UA RBC; Above High Threshold (test code = 01357-1) 37 {/HPF} 0-2 UA WBC; Above High Threshold (test code = 13648-6) 60 {/HPF} 0-5 UA Bacteria; Abnormal (test code = 70629-9) Moderate None Seen A UA Mucus; Abnormal (test cod e = 8247-9) Many None Seen A UA Sq Epi (test code = 67006-4) Occasional Few UA Color (test code = 5778-6) Mariela [facility][] HIV AB, HIV 1/2, EIA, WITH [id number] 16:30:01* Test Item Value Reference Range Interpretation Comme nts HIV Ag/Ab 4th Gen (test code = 90394-3) Negative Negative HIV test results should be considered positive only when both the screening andthe confirmatory tests are positive. A negative confirmatory test in patientswith a positive screening test does not exclude HIV infection. If clincallywarranted, an HIV RNA quantitative test should be ordered. [facility]] CULTURE, URINE, [id number] 16:30:01* Test Item Value Reference Range Interpretation Comme nts ORGANISM (test code = 699-9) Citrobacter koseri FINAL REPORT (test code = FINAL REPORT) >100,000 CFU/mL Citrobacter koseri 50,000 - 100,000 CFU/mL Skin Jacob [facility][H] [id number] 16:30:01* Test Item Value Reference Range Interpretation Comme nts ORGANISM (test code = 699-9) Citrobacter koseri Amikacin (test code = Amikacin) <=16 S Ampicillin (test code = Ampicillin) >16 R Ampicillin/Sulbactam (test code = Ampicillin/Sulbactam) <=8/4 S Cefazolin (test code = Cefazolin) <=8 S Cefepime (test code = Cefepime) <=4 S Ceftriaxone (test code = Ceftriaxone) <=8 S Ciprofloxacin (test code = Ciprofloxacin) <=1 S Gentamicin (test code = Gentamicin) <=4 S Levofloxacin (test code = Levofloxacin) <=2 S Meropenem (test code = Meropenem) <=1 S Nitrofurantoin (test code = Nitrofurantoin) <=32 S Piperacillin/Tazobact am (test code = Piperacillin/Tazobact am) <=16 S Tetracycline (test code = Tetracycline) <=4 S Tobramycin (test code = Tobramycin) <=4 S Trimethoprim/Sulfamet hoxazole (test code = Trimethoprim/Sulfamet hoxazole) <=2/38 S S= Susceptible, R= Resistant, I= Intermediate, N/A= Not Applicable [facility][H] Hemoglobin Electrophoresis and [id number] 16:30:01* Test Item Value Reference Range Interpretation Comments Hgb A % (test code = 4546-8) 97.3 % 95.8-97.8 Hgb A2 % (test code = 4552-6) 2.7 % 2.2-3.2 Hgb F % (test code = 32060-1) 0.0 % 0.0-1.0 Hgb S % (test code = 81172-8) 0.0 % 0.0-0.0 Hgb C % (test code = 55265-7) 0.0 % 0.0-0.0 Hemoglobin Electrophoresis Interpretation (test code = 66623-1) SEE NOTES No abnormal hemo globins are detected. This is a normal hemoglobinelectrophoresis pattern.The electronic medical record has been reviewed forrelevant medical information.I have personally reviewed the test results andconcur with the resident's interpretation.CPT [id number] Signature Edita Villarreal MD 10/28/17 10:54 AM [facility][O] Urine Test (in office)2017-10-24 15:41:00* Test Item Value Reference Range Interpretation Comme nts Test, Urine; Abnor mal (test code = 2106-3) positive A [facility]
[2023-07-31 09:35] LABS: SARS-CoV-2 Antigen CONTROL BLUE LINE VIS/BG OK; SARS-CoV-2 Antigen Rapid Res Negative (Negative)
--- NOTE | 2023-07-31 10:34 | ER ---
Nurse's Notes [facility] Name: Ngoc Thomson Age: 32 yrs Sex: Female : 1990 Arrival Date: 07/31/2023 Time: 08:24 Bed DX3 Private MD: Diagnosis: Acute upper respiratory infection, unspecified Presentation: 07/30 08:52 Chief complaint: Patient states: she started having flu-like symptoms yesterday with ap3 body aches. Coronavirus screen: Client presents with at least one sign or symptom that may indicate coronavirus-19. Ebola Screen: No symptoms or risks identified at this time. Initial Sepsis Screen: Does the patient meet any 2 criteria? No. Patient's initial sepsis screen is negative. Does the patient have a suspected source of infection? No. Patient's initial sepsis screen is negative. Risk Assessment: Do you want to hurt yourself or someone else? Patient reports no desire to harm self or others. Onset of symptoms was July 30, 2023. 08:52 Method Of Arrival: Ambulatory ap3 08:52 Acuity: ENRIQUE 4 ap3 Triage Assessment: 08:54 General: Appears uncomfortable, ill, Behavior is calm, cooperative. Pain: Complains of ap3 pain in generalized body aches. Neuro: Level of Consciousness is awake, alert, obeys commands, Oriented to person, place, time, situation. Cardiovascular: Patient's skin is warm and dry. Respiratory: Reports cough that is Airway is patent Respiratory effort is even, unlabored, Respiratory pattern is regular, symmetrical. 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 - Infectious Disease History:: Denies. - Social history:: Smoking status: Patient denies any tobacco usage or history of. - Family history:: not pertinent. - Hospitalizations: : No recent hospitalization is reported. Screenin:54 Abuse screen: Denies threats or abuse. Nutritional screening: No deficits noted. ap3 Tuberculosis screening: No symptoms or risk factors identified. 08:54 [facility] ED Fall Risk Assessment (Adult) History of falling in the last 3 months, ap3 including since admission No falls in past 3 months (0 pts) Confusion or Disorientation No (0 pts) Intoxicated or Sedated No (0 pts) Impaired Gait No (0 pts) Mobility Assist Device Used No (0 pt) Altered Elimination No (0 pt) Score/Fall Risk Level 0 - 2 = Low Risk Oriented to surroundings, Maintained a safe environment, Educated pt \T\ family on fall prevention, incl call for assistance when getting out of bed, Assessed \T\ reinforced patient's understanding of fall precautions, Provided non-skid footwear, Hourly rounding (assess needs \T\ fall precautionary measures) done, Used ambulatory aids as needed (educated on \T\ assisted with), Used gait belt as appropriate. Assessment: 10:34 Reassessment: Patient and/or family updated on plan of care and expected duration. Pain ap3 level reassessed. Patient is alert, oriented x 3, equal unlabored respirations, skin warm/dry/pink. Vital Signs: 08:52 Pulse 94; Resp 18; Temp 98.1; Pulse Ox 100% ; Weight 102.06 kg; Height 5 ft. 6 in. ; ap3 Pain 7/10; 08:55 BP 117 / 81; ap3 08:52 Body Mass Index 36.32 (102.06 kg, 167.64 cm) ap3 08:52 Pain Scale: Adult ap3 ED Course: 08:27 Patient arrived in ED. im 08:29 Stiven Pearl MD is Attending Physician. rn 08:53 Triage completed. ap3 08:54 Arm band placed on right wrist. ap3 08:54 Patient has correct armband on for positive identification. Provided Education on: how ap3 to contact triage nurse in event of emergency. 10:48 No provider procedures requiring assistance completed. Patient did not have IV access ap3 during this emergency room visit. Administered Medications: No medications were administered Medication: 10:49 VIS not applicable for this client. ap3 Outcome: 10:33 Discharge ordered by . rn 10:48 Discharged to home ambulatory, ap3 10:48 Condition: good 10:48 Discharge instructions given to patient, Instructed on discharge instructions, follow ap3 up and referral plans. Demonstrated understanding of instructions, follow-up care, 10:50 Patient left the ED. ap3 Signatures: Stiven Pearl MD MD rn Prokisch, Amanda, RN RN ap3 Lucille Anderson im
--- NOTE | 2023-07-31 10:34 | EDPHYS ---
Physician Documentation [facility] Name: Ngoc Tohmson Age: 32 yrs Sex: Female : 1990 Arrival Date: 07/31/2023 Time: 08:24 Bed DX3 Private MD: ED Physician Stiven Pearl HPI: 07/30 10:31 This 32 yrs old Black Female presents to ER via Ambulatory with complaints of Flu rn Symptoms. 10:31 The patient or guardian reports cough. Onset: The symptoms/episode began/occurred 2 rn day(s) ago. Severity of symptoms: At their worst the symptoms were mild, in the emergency department the symptoms are unchanged. Associated signs and symptoms: Pertinent positives: rhinorrhea, sore throat. The patient has not experienced similar symptoms in the past. Patient reports cough and upper respiratory infection with congestion for 2 days. Took home COVID and was negative. Feels myalgias and generalized malaise. No shortness of breath.. 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 - Infectious Disease History:: Denies. - Social history:: Smoking status: Patient denies any tobacco usage or history of. - Family history:: not pertinent. - Hospitalizations: : No recent hospitalization is reported. ROS: 10:31 Constitutional: Positive chills and myalgias ENT: Positive for congestion Neck: rn Negative for injury, pain, and swelling, Cardiovascular: Negative for chest pain, palpitations, and edema, Respiratory: Negative for shortness of breath, wheezing, and pleuritic chest pain, Abdomen/GI: Negative for abdominal pain, nausea, vomiting, diarrhea, and constipation, Back: Negative for injury and pain, : Negative for injury, bleeding, discharge, and swelling, MS/Extremity: Negative for injury and deformity, Skin: Negative for injury, rash, and discoloration, Neuro: Positive for headache and generalized malaise Exam: 10:31 Constitutional: This is a well developed, well nourished patient who is awake, alert, rn and in no acute distress. Head/Face: Normocephalic, atraumatic. ENT: Mild pharyngeal erythema. No stridor Neck: Nontender cervical lymphadenopathy present. No meningismus. Cardiovascular: Regular rate and rhythm. No pulse deficits. Respiratory: No increased work of breathing, no retractions or nasal flaring. Neuro: Awake and alert, GCS 15 Vital Signs: 08:52 Pulse 94; Resp 18; Temp 98.1; Pulse Ox 100% ; Weight 102.06 kg; Height 5 ft. 6 in. ; ap3 Pain 7/10; 08:55 BP 117 / 81; ap3 08:52 Body Mass Index 36.32 (102.06 kg, 167.64 cm) ap3 08:52 Pain Scale: Adult ap3 MDM: 08:29 Patient medically screened. rn 10:31 Differential Diagnosis: Bronchitis Influenza Upper Respiratory Infection Sinusitis rn Pharyngitis Viral Syndrome. Data reviewed: vital signs, nurses notes, lab test result(s), and as a result, I will discharge patient. Counseling: I had a detailed discussion with the patient and/or guardian regarding the historical points, exam findings, and any diagnostic results supporting the discharge/admit diagnosis, lab results, the need for outpatient follow up, to return to the emergency department if symptoms worsen or persist or if there are any questions or concerns that arise at home. Special discussion: I discussed with the patient/guardian in detail that at this point there is no indication for admission to the hospital. It is understood, however, that if the symptoms persist or worsen the patient needs to return immediately for re-evaluation. ED course: I have personally reviewed all of the results, including but not limited to blood tests deemed necessary to safely discharge this patient at this time. All results given to and printed out for patient. I personally went over all the results with the patient and answered all questions. Patient will follow-up with PCP and or specialist as discussed. Return precautions given and understood.. 07/30 08:33 Order name: Strep rn 07/30 08:33 Order name: SARS RAPID; Complete Time: 10:30 rn 07/30 08:33 Order name: Flu; Complete Time: 10:30 rn 07/30 09:36 Order name: Throat Culture EDMS Administered Medications: No medications were administered Disposition Summary: 07/31/23 10:33 Discharge Ordered Notes: Location: Home rn Problem: new rn Symptoms: have improved rn Condition: Stable rn Diagnosis - Acute upper respiratory infection, unspecified rn Followup: rn - With: Private Physician - When: As needed - Reason: Recheck today's complaints, Re-evaluation by your physician Discharge Instructions: - Discharge Summary Sheet rn - Upper Respiratory Infection, Adult rn Forms: - Medication Reconciliation Form rn - Antibiotic international specialist - Prescription Opioid Use rn - Patient Portal Instructions rn - Leadership Thank You Letter rn - Work release form ap3 Prescriptions: - Zithromax Z-Juventino 250 mg Oral Tablet - take 1 tablet ORAL route as directed for 5 days Day 1 - take two (2) tablets rn one time. 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 EDMS EDMS 08:33 08:33 Influenza Screen (A \T\ B)+BA.LAB.BRZ ordered. EDMS EDMS 08:33 08:33 Group A Streptococcus Rapid Sc+BA.LAB.BRZ ordered. EDMS EDMS
[2023-07-31 11:08] VITALS: BP 117/81; TEMP 98.1; O2SAT 100
== END 2023-07-31 10:50 | disposition home or self-care (01) ==
LOC: ER 08:24
DX: J06.9 Acute upper respiratory infection, unspecified (principal); Z11.52 Encounter for screening for COVID-19
CPT/HCPCS: 36415; 87070; 87081; 87804; 87811